=== PATIENT | male | born 1950 | race Caucasian/White ===

== ENCOUNTER 2020-03-17 11:55 | Emergency (ER) | payer MEDICARE, SELFPAY ==
[2020-03-17 11:59] VITALS: BP 111/73; PULSE 77; RESP 18; TEMP 36.4; O2SAT 98; BMI 27.8
--- NOTE | 2020-03-17 12:48 | ED.BACK ---
HPI - Back Pain/Injury General Chief Complaint: Back Pain/Injury Stated Complaint: back pain Time Seen by Provider: 03/17/20 12:41 Source: patient and senior engineering technician Mode of arrival: ambulatory Limitations: no limitations and language barrier History of Present Illness HPI Narrative: 69-year-old male here with acute on chronic low back pain. No injury or fall. No radiation of pain. No numbness or tingling. No saddle anesthesia. No bowel or bladder incontinence. Ambulatory with cane at baseline MD elicited complaint: back pain Pertinent past history: prior back pain Onset (ago): day(s) Timing: intermittent Severity: moderate Similar Symptoms Previously: Yes Quality: sharp Location: lumbar spine Radiation: none Exacerbating factors: none Relieving factors: none Associated symptoms: denies other symptoms Related Data Previous Rx's Medication Instructions Recorded cyclobenzaprine 10 mg PO TID PRN #10 tab 03/17/20 lidocaine [Lidoderm] 1 patch TOPICAL DAILY #15 ea 03/17/20 naproxen 500 mg PO BID PRN #20 tab 03/17/20 Allergies Allergy/AdvReac Type Severity Reaction Status Date / Time latex [Latex] Allergy Unknown UNKNOWN Verified 03/17/20 11:59 oxycodone AdvReac Unknown ? Verified 03/17/20 11:59 pancreatitis Latex Allergy Unknown Unknown Uncoded 03/17/20 11:59 Review of Systems Review of Systems: Yes all other systems are reviewed and are negative Constitutional: Constitutional: Reports no additional constitutional complaints, Denies body ache(s), Denies chills, Denies fever(s), Denies headache(s) and Denies weakness Eyes: Eyes: Reports no additional eye complaints and Denies change in vision ENT: Reports system reviewed and no additional complaints, except as documented, Denies dizziness, Denies headache(s), Denies nasal congestion, Denies nasal discharge and Denies neck pain Cardiovascular: Cardiovascular: Reports no additional cardiovascular complaints, Denies chest pain, Denies leg edema and Denies dyspnea Respiratory: Respiratory: Reports no additional respiratory complaints, Denies cough and Denies dyspnea Gastrointestinal: Gastrointestinal: Reports no additional gastrointestinal complaints, Denies abdominal pain, Denies diarrhea, Denies nausea and Denies vomiting Genitourinary: Genitourinary: Denies urinary incontinence Musculoskeletal: Musculoskeletal: Reports no additional musculoskeletal complaints, Reports back pain, Denies arthralgias, Denies joint swelling, Denies neck pain, Denies numbness and Denies tingling Integumentary/Breasts: Skin/Breast: Reports system reviewed and no additional complaints, except as docu and Denies rash Neurologic: Reports system reviewed and no additional complaints, except as documented, Denies Abnormal speech present, Denies dizziness, Denies headache(s), Denies numbness, Denies tingling and Denies weakness PMFSH Past Medical History Attestation statement: The following information was validated with the patient. Source: old records reviewed and nursing notes reviewed Medical History Back pain Difficulty sleeping Social History Social History Advance Directives: No Advance Directives Information Provided: Yes Physical Exam Vital Signs: Vital Signs: Last Vital Signs Temp 97.6 F 03/17/20 11:59 Pulse 77 03/17/20 11:59 Resp 18 03/17/20 11:59 BP 111/73 03/17/20 11:59 Pulse Ox 98 03/17/20 11:59 Body Mass Index 27.8 Const: General: cooperative, healthy appearing, comfortable and no acute distress Orientation/consciousness: patient oriented x3 Limitations: no limitations HENMT: Head: Yes normal to inspection Ears: hearing grossly normal bilaterally General nose exam: Normal external nose present Face and sinus: Yes normal facial exam Mouth: Normal oral and palatal mucosa present Throat: Yes posterior oropharynx normal Eyes: General: appearance normal, both eyes and all related structures Pupils: Equal, round and reactive pupils present Neck: Neck: Yes normal visual inspection Chest: Chest palpation & inspection: normal inspection of the chest Resp: Effort & Inspection: normal respiratory effort Auscultation: clear to auscultation bilaterally Cardio: Rate: regular rate Rhythm: regular rhythm Peripheral pulses: Peripheral pulses 2+ throughout GI: Inspection: Yes normal to inspection Palpation (GI): Soft to palpation and nontender Auscultation: normal bowel sounds Back/Spine/Pelvis: Other: Moderate lumbar midline tenderness. No step-offs or deformities. Pain with straight leg raise bilaterally. 5/5 strength Thoracic/Lumbar Spine: thoracic and lumbar spine normal to inspection Skin: General skin exam: no rashes or lesions noted Neuro: General: patient oriented x3, no focal motor deficits and normal sensation to monofilament Cranial nerves: Yes Equal, round and reactive pupils present Cognition (Neuro): normal cognition Speech: No Abnormal speech present Gait exam (Neuro): Normal gait present Motor exam (neuro): 5/5 motor strength present throughout Sensory Exam: Normal double simultaneous stimulation for sensation Deep tendon reflexes (DTR's): Right patellar reflex intensity grade: 2+ and Left patellar reflex intensity grade: 2+ Extrem: General: Yes normal to inspection Course Course Course Narrative: Patient has midline tenderness. Will check imaging. Provide analgesia and reassess. 1340-imaging shows some degenerative changes with no acute fracture. Patient is improved after receiving Toradol here. No neurological deficits or red flag symptoms. Likely lumbar strain. Reviewed worrisome signs and symptoms and when to return to the emergency department. Comfortable with discharge home. MDM - Back Pain/Injury Medical Records Attestation: I reviewed the patient's medical records. Lab Data Attestation: I reviewed the patient's lab results. Imaging Data lumbar xray: Attestation: I personally reviewed and interpreted this imaging study as follows: Radiologist's impression: EXAMINATION: XR LUMBOSACRAL SPINE CLINICAL INFORMATION: Low back pain. COMPARISON: None TECHNIQUE: Three views of the lumbosacral spine. FINDINGS: Normal lumbar lordosis. The vertebral heights and alignment is normal. There is loss of T12, L1 and L1-L2 disc heights with moderate ventral spondylosis. The large bridging osteophytes as well and mid lumbar spine. No acute fracture or lytic process seen. The paravertebral soft tissues are normal. XR/XR lumbar spine 2-3V IMPRESSION: Degenerative disc changes at L2-L3 and L1-L2 disc levels with moderate ventral spondylosis. No visible acute fracture, dislocation or subluxation seen. Discharge Plan Discharge Clinical Impression: Strain of lumbar region Qualifiers: Encounter type: initial encounter Qualified Code(s): S39.012A - Strain of muscle, fascia and tendon of lower back, initial encounter Patient Disposition: Home, Self-Care Instructions: Low Back Strain (ED) Additional Instructions: Heat or ice Gentle stretching Follow-up with your primary care doctor Prescriptions: New naproxen 500 mg tablet 500 mg PO BID PRN (Reason: pain) Qty: 20 RF: 0 cyclobenzaprine 10 mg tablet 10 mg PO TID PRN (Reason: muscle spasm) Qty: 10 RF: 0 lidocaine [Lidoderm] 5 % adhesive patch,medicated 1 patch topical DAILY Qty: 15 RF: 0 Referrals: Sam Martin MD [Primary Care Provider] - 2 days Interventions: ED Discharge Assessment Last Done: 03/17/20 13:59 Discharge Date/Time: 03/17/20 13:59 Print Language: [place]
--- NOTE | 2020-03-17 12:56 | XR_ITS ---
EXAMINATION: XR LUMBOSACRAL SPINE CLINICAL INFORMATION: Low back pain. COMPARISON: None TECHNIQUE: Three views of the lumbosacral spine. FINDINGS: Normal lumbar lordosis. The vertebral heights and alignment is normal. There is loss of T12, L1 and L1-L2 disc heights with moderate ventral spondylosis. The large bridging osteophytes as well and mid lumbar spine. No acute fracture or lytic process seen. The paravertebral soft tissues are normal. XR/XR lumbar spine 2-3V IMPRESSION: Degenerative disc changes at L2-L3 and L1-L2 disc levels with moderate ventral spondylosis. No visible acute fracture, dislocation or subluxation seen.
[2020-03-17] MEDS: Ketorolac Tromethamine 60 MG/2 ML VIAL IM (13:04)
== END 2020-03-17 13:59 | disposition home or self-care (01) ==
PROVIDERS: Emergency Provider Emergency Medicine; PCP Internal Medicine
DX: S39.012A Strain of muscle, fascia and tendon of lower back, initial encounter (principal); X58.XXXA Exposure to other specified factors, initial encounter; Y93.9 Activity, unspecified; Y92.9 Unspecified place or not applicable; Y99.9 Unspecified external cause status
CPT/HCPCS: 72100; 96372; 99283; 99284; J1885

== ENCOUNTER 2020-05-09 11:54 | Emergency (ER) | payer MEDICARE, SELFPAY ==
[2020-05-09 12:09] VITALS: BP 172/96; PULSE 90; RESP 18; TEMP 37; O2SAT 97; BMI 29.2
--- NOTE | 2020-05-09 13:39 | ED.BACK ---
HPI - Back Pain/Injury General Chief Complaint: Back Pain/Injury Stated Complaint: BACK PAIN Time Seen by Provider: 05/09/20 13:23 History of Present Illness HPI Narrative: PATIENT WITH CHRONIC BACK PAIN FOR YEARS COMPLAINS OF A FLARE UP SIMILAR TO MANY PRIOR EPISODES WERE HIS LOWER BACK IS HURTING, THERE IS NO RADIATION OF THE PAIN NO NUMBNESS NO WEAKNESS NO DIFFICULTY WALKING NO TROUBLE WITH URINATION NO CHANGES TO BOWEL OR BLADDER NO INCONTINENCE Related Data Previous Rx's Medication Instructions Recorded cyclobenzaprine 10 mg PO TID PRN #10 tab 03/17/20 lidocaine [Lidoderm] 1 patch TOPICAL DAILY #15 ea 03/17/20 naproxen 500 mg PO BID PRN #20 tab 03/17/20 cyclobenzaprine 5 mg PO TID PRN #14 tab 05/09/20 lidocaine [Lidoderm] 1 patch TOPICAL DAILY #15 ea 05/09/20 naproxen [Naprosyn] 500 mg PO BID PRN #14 tab 05/09/20 Allergies Allergy/AdvReac Type Severity Reaction Status Date / Time latex [Latex] Allergy Intermediate UNKNOWN Verified 05/09/20 12:09 oxycodone AdvReac Intermediate ? Verified 05/09/20 12:09 pancreatitis Latex Allergy Intermediate Unknown Uncoded 05/09/20 12:09 Review of Systems Review of Systems: Positive for low back pain Negatives are dizziness weakness, no fever no chills no neck pain no numbness no weakness no paresthesias no tingling no radiation of pain no incontinence no dysuria no changes to bowel or bladder no chest pain or shortness of breath no abdominal pain no rash PMFSH Past Medical History PMFSH Narrative: Patient has long history of chronic back pain and says he has had this ?for ever, and gets flare ups of more severe pain every few months and this is the same as his prior flare ups with back pain worse with movement, he also has history of hypertension for which she takes medication Source: nursing notes reviewed Medical History Back pain Difficulty sleeping Social History Social History Advance Directives: No Advance Directives Information Provided: No Physical Exam Vital Signs: Vital Signs: Last Vital Signs Temp 98.6 F 05/09/20 12:09 Pulse 90 05/09/20 12:09 Resp 18 05/09/20 12:09 BP 172/96 H 05/09/20 12:09 Pulse Ox 97 05/09/20 12:09 Body Mass Index 29.2 General appearance is no acute distress, but uncomfortable with movement, A&O x3, Head is normocephalic atraumatic Neck is supple and nontender The chest is clear to auscultation bilaterally, no chest wall tenderness The heart no murmur auscultated The abdomen is soft and nontender The back had bilateral paraspinal lower lumbar tenderness, the skin was normal without rash or redness, no swelling, no CVA tenderness, no focal bony tenderness, pain easily reproduced with movement Extremities is full range of motion x4 The skin no rash Neuro there is no focal deficit, motor is 5/5 x4, no sensory deficit, gait is normal Course Course Course Narrative: Patient had Toradol shot with good relief, and is discharged home with medications he has taken before, lidocaine patch Naprosyn and Flexeril and will follow with his doctor Discharge Plan Discharge Clinical Impression: Back pain Qualifiers: Back pain location: low back pain Chronicity: chronic Back pain laterality: bilateral Sciatica presence: without sciatica Qualified Code(s): M54.5 - Low back pain Patient Disposition: Home, Self-Care Additional Instructions: Follow with primary doctor Return to ER any time any worse condition or any concerns It is fine to take 2 extra-strength Tylenol 3 times a day in addition to medications prescribed Prescriptions: New cyclobenzaprine 5 mg tablet 5 mg PO TID PRN (Reason: muscle spasm) Qty: 14 RF: 0 lidocaine [Lidoderm] 5 % adhesive patch,medicated 1 patch topical DAILY Qty: 15 RF: 0 naproxen [Naprosyn] 500 mg tablet 500 mg PO BID PRN (Reason: pain) Qty: 14 RF: 0 No Action naproxen 500 mg tablet 500 mg PO BID PRN (Reason: pain) Qty: 20 RF: 0 cyclobenzaprine 10 mg tablet 10 mg PO TID PRN (Reason: muscle spasm) Qty: 10 RF: 0 lidocaine [Lidoderm] 5 % adhesive patch,medicated 1 patch topical DAILY Qty: 15 RF: 0 Interventions: ED Discharge Assessment Last Done: 05/09/20 14:46 Discharge Date/Time: 05/09/20 14:47
[2020-05-09] MEDS: Ketorolac Tromethamine 30 MG/ML VIAL IM (14:22)
== END 2020-05-09 14:47 | disposition home or self-care (01) ==
PROVIDERS: Emergency Provider Emergency Medicine Emergency Medical Services; PCP Internal Medicine
DX: M54.5 Low back pain (principal)
CPT/HCPCS: 96372; 99283; 99284; J1885

== ENCOUNTER 2022-01-08 21:13 | Emergency (ER) | payer MEDICARE, SELFPAY ==
--- NOTE | ~2022-01-08 | XR_ITS ---
EXAMINATION: XR HAND, LEFT CLINICAL INFORMATION: Swelling. COMPARISON: None TECHNIQUE: Three views of the left hand. FINDINGS: Marked degenerative change of the first metacarpal carpal joint. Joint narrowing and marginal bone spurs. Mild joint narrowing between navicular bone and multangular bones as well. Faint chondrocalcinosis of the TFCC. No bone erosions. Vascular calcifications at the radial side of the wrist. No fracture or dislocation. XR/XR hand LT 2V IMPRESSION: 1. No acute abnormality. 2. 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
[2022-01-08 21:16] VITALS: BP 133/81; PULSE 99; RESP 18; TEMP 37.1; O2SAT 97; BMI 27.4
[2022-01-08 21:36] LABS: MANUAL DIFF FLAG NO
[2022-01-08 21:40] LABS: Basophils Absolute Auto 0.1 X10*3/uL (0.0-0.2); Basophils Percent Auto 0.5 % (0-2); Eosinophils Absolute Auto 0.2 X10*3/uL (0.0-0.4); Eosinophils Percent Auto 1.3 % (0-4); Hematocrit 43.9 % (42.0-52.0); Hemoglobin 15.3 g/dl (14.0-18.0); Imm Gran Abs Auto 0.03 X10*3/uL (0.00-0.03); Imm Gran Pct Auto 0.2 % (0.0-0.4); Lymphocytes Absolute Auto 2.8 X10*3/uL (1.2-4.9); Mean Corpuscular HGB Conc 34.9 g/dl (31.0-36.0); Mean Corpuscular Hemoglobin 30.5 pg (27.0-33.0); Mean Corpuscular Volume 87.6 fL (80.0-98.0); Mean Platelet Volume 10.2 fL (9.4-12.4); Monocytes Absolute Auto 1.3 X10*3/uL (0.1-1.2); Monocytes Percent Auto 9.9 % (2-11); Neutrophils Absolute Auto 8.9 x10*3/uL (2.0-8.3); Neutrophils Percent Auto 67.1 % (45-73); Platelet Count 251 X10*3/uL (160-400); Red Blood Count 5.01 X10*6/uL (4.60-5.80); Red Cell Distribution Width 12.1 % (11.0-16.0); White Blood Count 13.2 X10*3/uL (4.8-10.8)
[2022-01-08 21:51] LABS: Alanine Aminotransferase 12 U/L (0-40); Albumin Level 4.4 g/dL (3.5-5.0); Alkaline Phosphatase 70 U/L (39-117); Anion Gap 17 (12-20); Aspartate Amino Transferase 15 U/L (5-37); Bilirubin Total 0.8 mg/dL (0.0-1.0); Blood Urea Nitrogen 13 mg/dL (9-16); Calcium 9.4 mg/dL (8.4-10.2); Carbon Dioxide 22 mmol/L (22-29); Chloride 106 mmol/L (96-108); Creatinine Clr Calc Pharmacy 45.4; Estimated Glomerular Filt Rate 52; Glucose Random 121 mg/dL (60-115); Potassium 3.8 mmol/L (3.3-5.1); Sodium 141 mmol/L (135-145); Total Protein 7.4 g/dL (6.5-8.0)
--- NOTE | 2022-01-08 21:56 | ED_ITS ---
HPI - Extremity Problem General Chief complaint: Extremity Injury, Upper Stated complaint: swelling in left hand Time Seen by Provider: 01/08/22 21:51 Source: patient and cloth cutter Mode of arrival: EMS Limitations: no limitations History of Present Illness MD Complaint: extremity pain and extremity swelling Onset (ago): day(s) (yesterday ) Pain Consistency: constant Location: left and upper extremity (wrist/hand) Quality: aching and constant Radiation: proximal Relieving factors: immobilization Exacerbating factors: range of motion and palpation Associated symptoms: denies other symptoms Context: other (has arthritis, drinks alcohol) Related Data Previous Rx's Medication Instructions Recorded cyclobenzaprine 10 mg tablet 10 mg PO TID PRN muscle spasm #10 03/17/20 tabs lidocaine 5 % topical patch 1 patch topical DAILY #15 ea 03/17/20 (Lidoderm) naproxen 500 mg tablet 500 mg PO BID PRN pain #20 tabs 03/17/20 cyclobenzaprine 5 mg tablet 5 mg PO TID PRN muscle spasm #14 05/09/20 tabs lidocaine 5 % topical patch 1 patch topical DAILY pain in back 05/09/20 (Lidoderm) #15 ea naproxen 500 mg tablet (Naprosyn) 500 mg PO BID PRN pain #14 tabs 05/09/20 cyclobenzaprine 10 mg tablet 10 mg PO TID PRN muscle spasm #14 01/08/22 tabs famotidine 20 mg tablet (Pepcid) 20 mg PO DAILY 10 days #10 tabs 01/08/22 ibuprofen 400 mg tablet 400 mg PO Q8H PRN pain #20 tabs 01/08/22 prednisone 20 mg tablet 40 mg PO DAILY 4 days #8 tabs 01/08/22 Allergies Allergy/AdvReac Type Severity Reaction Status Date / Time latex [Latex] Allergy Intermediate UNKNOWN Verified 05/09/20 12:09 oxycodone AdvReac Intermediate ? Verified 05/09/20 12:09 pancreatitis Latex Allergy Intermediate Unknown Uncoded 05/09/20 12:09 Review of Systems Review of Systems: Constitutional : No Fever, No Chills ENT/Mouth : No Ear Pain, No Hoarseness, No sore throat Eyes: No Eye Pain, No Swelling, No Redness, No Foreign Body Cardiovascular : No Chest Pain, No SOB Respiratory : No Cough, No Dyspnea Gastrointestinal : No Nausea, No Vomiting, No Diarrhea, No abdominal Pain Genitourinary : No Dysuria, No Hematuria Musculoskeletal : positive joint pain, No Myalgias, pos Joint Swelling Skin : No Skin lacerations, No rash Neuro : No Weakness, No Numbness, No Loss of Consciousness, No Dizziness, No Headache Psych : No Anxiety/Panic, No Depression Heme/Lymph: no easy bruising, no Lymphadenopathy Endocrine : No Polyuria, No Polydipsia All other systems reviewed and are negative [facility], [facility] Past Medical History Attestation statement: The following information was validated with the patient. Medical History Arthritis Back pain Difficulty sleeping Social History Social History (Updated 01/08/22 @ 22:24 by Sulma Stephens DO) Alcohol intake: current Patient Tobacco Use Status: Current someday Tobacco user Physical Exam Vital Signs: Vital Signs: Last Vital Signs Temp 98.7 F 01/08/22 21:16 Pulse 99 01/08/22 21:16 Resp 18 01/08/22 21:16 BP 133/81 01/08/22 21:16 Pulse Ox 97 01/08/22 21:16 O2 Del Method 01/08/22 21:16 BMI result Body Mass Index 27.4 Appearance: Alert. Oriented X3. No acute distress. Eyes: Pupils equal, round and reactive to light. ENT: Pharynx normal. Neck: Normal inspection. Neck supple. CVS: Normal heart rate and rhythm. Pulses normal. Respiratory: No respiratory distress. Breath sounds normal. Abdomen: Soft and non-tender. Skin: Skin warm and dry. Normal skin color. Normal skin turgor. Extremities: No lower extremity edema. L hand dorsum and L wrist mild swelling distal NV intact no erythema very minimal warmth 2+ radial pulse, no proximal swelling Neuro: Oriented X 3. No motor deficit. No sensory deficit. MDM - Extremity (Nontraumatic) MDM Narrative Medical decision making narrative: 71 yo male with hx of ETOH, HTN, arthritis here with atraumatic L hand pain into wrist it is swollen and mildly warm no erythema or signs of infection. He is NV intact - it appears consistent with inflammation or gout. Xrays and labs ordered. PO steroids and anti - inflammatories. Dispo per results and findings. Lab Data Result diagrams: 01/08/22 21:27 01/08/22 21:27 Labs: Lab Results 01/08/22 01/08/22 01/08/22 Range/Units 21:27 21:27 21:27 WBC 13.2 H (4.8-10.8) X10*3/uL RBC 5.01 (4.60-5.80) X10*6/uL Hgb 15.3 (14.0-18.0) g/dl Hct 43.9 (42.0-52.0) % MCV 87.6 (80.0-98.0) fL MCH 30.5 (27.0-33.0) pg MCHC 34.9 (31.0-36.0) g/dl RDW 12.1 (11.0-16.0) % Plt Count 251 (160-400) X10*3/uL MPV 10.2 (9.4-12.4) fL Immature Gran % (Auto) 0.2 (0.0-0.4) % Neut % (Auto) 67.1 (45-73) % Lymph % (Auto) 21.0 (20-40) % [place] % (Auto) 9.9 (2-11) % Eos % (Auto) 1.3 (0-4) % Baso % (Auto) 0.5 (0-2) % Lymph # (Auto) 2.8 (1.2-4.9) X10*3/uL [place] # (Auto) 1.3 H (0.1-1.2) X10*3/uL Eos # (Auto) 0.2 (0.0-0.4) X10*3/uL Baso # (Auto) 0.1 (0.0-0.2) X10*3/uL Abs Immat Gran (auto) 0.03 (0.00-0.03) X10*3/uL Absolute Neuts (auto) 8.9 H (2.0-8.3) x10*3/uL Absolute Nucleated RBC 0.000 (0.0-0.012) X10*3/uL Nucleated RBC % (auto) 0.0 (0.0-0.2) /100WBC ESR 18 H (0-15) MM/HR Sodium 141 (135-145) mmol/L Potassium 3.8 (3.3-5.1) mmol/L Chloride 106 (96-108) mmol/L Carbon Dioxide 22 (22-29) mmol/L Anion Gap 17 (12-20) BUN 13 (9-16) mg/dL Creatinine 1.36 (0.5-1.4) mg/dL Estim Creat Clear Calc 45.4 Estimated GFR 52 Random Glucose 121 H (60-115) mg/dL Uric Acid 7.2 H (3.4-7.0) mg/dL Calcium 9.4 (8.4-10.2) mg/dL Total Bilirubin 0.8 (0.0-1.0) mg/dL AST 15 (5-37) U/L ALT 12 (0-40) U/L Alkaline Phosphatase 70 (39-117) U/L Total Protein 7.4 (6.5-8.0) g/dL Albumin 4.4 (3.5-5.0) g/dL Discharge Plan Discharge Clinical Impression: Gout Patient Disposition: Home, Self-Care Instructions: Low Purine Diet (ED), Gout (ED) Additional Instructions: regresar al servicio de urgencias por cualquier empeoramiento de los s?ntomas o inquietudes arlene todos los medicamentos con alimentos consulte a singh m?dico si no mejora en 3 d?as Prescriptions: New cyclobenzaprine 10 mg tablet 10 mg PO TID PRN (Reason: muscle spasm) Qty: 14 0RF famotidine [Pepcid] 20 mg tablet 20 mg PO DAILY 10 Days Qty: 10 0RF ibuprofen 400 mg tablet 400 mg PO Q8H PRN (Reason: pain) Qty: 20 0RF prednisone 20 mg tablet 40 mg PO DAILY 4 Days Qty: 8 0RF No Action cyclobenzaprine 5 mg tablet 5 mg PO TID PRN (Reason: muscle spasm) Qty: 14 0RF lidocaine [Lidoderm] 5 % adhesive patch,medicated 1 patch topical DAILY Qty: 15 0RF Rx Instructions: leave on most painful area for up to 12 hrs naproxen [Naprosyn] 500 mg tablet 500 mg PO BID PRN (Reason: pain) Qty: 14 0RF naproxen 500 mg tablet 500 mg PO BID PRN (Reason: pain) Qty: 20 0RF cyclobenzaprine 10 mg tablet 10 mg PO TID PRN (Reason: muscle spasm) Qty: 10 0RF lidocaine [Lidoderm] 5 % adhesive patch,medicated 1 patch topical DAILY Qty: 15 0RF Rx Instructions: leave on most painful area for up to 12 hrs Print Language: Sami
[2022-01-08 22:17] LABS: Erythrocyte Sedimentation Rate 18 MM/HR (0-15)
[2022-01-08 22:30] LABS: Uric Acid 7.2 mg/dL (3.4-7.0)
[2022-01-08] MEDS: Famotidine 20 MG TABLET PO (22:36)
[2022-01-08] MEDS: predniSONE 20 MG TABLET 40 MG PO (22:36)
[2022-01-08] MEDS: Ibuprofen 400 MG TABLET PO (22:37)
--- NOTE | 2022-01-08 23:48 | PC.NURSE ---
Patient required 15minutes of discharge via video intrepreter. Patient was displeased with MD diagnosis and treatment. PT wanted medications provided instead of going to the pharmacy, he was displeased we did not fix the swelling in his hand before he left. Patient reassured the MD evaluated him and the diagnosis was gout and educated on medication dispensing laws that meds had to go through the pharmacy. He left without signing paperwork.
== END 2022-01-08 23:51 | disposition home or self-care (01) ==
PROVIDERS: Emergency Provider Emergency Medicine; PCP Internal Medicine
DX: M10.9 Gout, unspecified (principal); R60.0 Localized edema; M79.642 Pain in left hand; Z79.899 Other long term (current) drug therapy
CPT/HCPCS: 36415; 73120; 80053; 84550; 85025; 85652; 99283

== ENCOUNTER 2022-12-20 21:08 | Emergency (ER) | payer OTHER, SELFPAY ==
[2022-12-20 21:54] VITALS: BP 161/96; BP 162/96; PULSE 64; PULSE 73; RESP 18; TEMP 36.7; O2SAT 95; O2SAT 99; BMI 27.8
[2022-12-20 22:22] VITALS: BP 174/99; PULSE 67; RESP 19; O2SAT 95
--- NOTE | 2022-12-20 23:27 | ED.GENADULT ---
HPI - General Adult General Chief complaint: General Medical Stated complaint: R arm pain. unk. duration Time Seen by Provider: 12/20/22 22:54 Source: patient Mode of arrival: EMS Limitations: no limitations History of Present Illness HPI narrative: Patient seemed to years with history of ETOH use, hypertension, arthritis and gout comes here for pain in right shoulder for last 6 days patient does have history of pain off and on in the past got worse no history of any injury pain get worse on lifting his right shoulder no paresthesia patient not taking his blood pressure medication on arrival blood pressure was 161/96 Related Data Previous Rx's Medication Instructions Recorded cyclobenzaprine 10 mg tablet 10 mg PO TID PRN muscle spasm #10 03/17/20 tabs lidocaine 5 % topical patch 1 patch topical DAILY #15 ea 03/17/20 (Lidoderm) naproxen 500 mg tablet 500 mg PO BID PRN pain #20 tabs 03/17/20 cyclobenzaprine 5 mg tablet 5 mg PO TID PRN muscle spasm #14 05/09/20 tabs lidocaine 5 % topical patch 1 patch topical DAILY pain in back 05/09/20 (Lidoderm) #15 ea naproxen 500 mg tablet (Naprosyn) 500 mg PO BID PRN pain #14 tabs 05/09/20 cyclobenzaprine 10 mg tablet 10 mg PO TID PRN muscle spasm #14 01/08/22 tabs famotidine 20 mg tablet (Pepcid) 20 mg PO DAILY 10 days #10 tabs 01/08/22 ibuprofen 400 mg tablet 400 mg PO Q8H PRN pain #20 tabs 01/08/22 prednisone 20 mg tablet 40 mg (2 x 20 mg) PO DAILY 4 days 01/08/22 #8 tabs tramadol 50 mg tablet 50 mg PO Q6H PRN pain #20 tabs 12/21/22 Allergies Allergy/AdvReac Type Severity Reaction Status Date / Time latex [Latex] Allergy Intermediate UNKNOWN Verified 05/09/20 12:09 oxycodone AdvReac Intermediate ? Verified 05/09/20 12:09 pancreatitis Latex Allergy Intermediate Unknown Uncoded 05/09/20 12:09 Review of Systems Review of Systems: Yes all other systems are reviewed and are negative PMFSH Past Medical History Medical History Arthritis Difficulty sleeping Back pain Social History Social History Alcohol intake: current Patient Tobacco Use Status: Current someday Tobacco user Smoked in Last 30 Days: No Use of substances other than those prescribed or required for medical reasons: No Advance Directives: No Advance Directives Information Provided: Yes Physical Exam ED Vital Signs: Vital Signs - 24 hr 12/20/22 21:54 12/20/22 22:22 Temperature 98.1 F Pulse Rate 64 67 Respiratory Rate 18 19 Blood Pressure 161/96 H 174/99 H Pulse Oximetry 95 95 Oxygen Delivery Method Room Air Room Air BMI result Body Mass Index 27.8 Appearance: Alert. Oriented X3. No acute distress. Neck: Normal inspection. Neck supple. CVS: Normal heart rate and rhythm. Pulses normal. Respiratory: No respiratory distress. Equal air entry bilateral, no wheezing/rales/rhonchi Abdomen: Soft and nontender. Bowel sounds are present, no mass palpable, no CVA tenderness Skin: Skin warm and dry. Normal skin color. Normal skin turgor. Extremities: No lower extremity edema. No calf tenderness tenderness as right shoulder rotator cuffpain limited with supination rotation neurovascular intact Neuro: Oriented X 3. No motor deficit. Medical Decision Making Medical Decision Making MDM Narrative: Patient with rotator tendinitis etiology not clear, Differential Diagnosis Differential Diagnoses: The differential diagnosis associated with the presentation includes Rotator cuff tendinitis/arthritis Consult Healthcare Provider Management of the patient was discussed with: Hospitalist Discharge Plan Discharge Clinical Impression: Right rotator cuff tendinitis Patient Disposition: Home, Self-Care Instructions: Rotator Cuff Tendinitis (ED) Additional Instructions: Take pain medication as prescribed for pain in your shoulder secondary to tendinitis Follow-up with orthopedic/ PCP Prescriptions: New tramadol 50 mg tablet 50 mg PO Q6H PRN (Reason: pain) Qty: 20 0RF No Action cyclobenzaprine 5 mg tablet 5 mg PO TID PRN (Reason: muscle spasm) Qty: 14 0RF lidocaine [Lidoderm] 5 % adhesive patch,medicated 1 patch topical DAILY Qty: 15 0RF Rx Instructions: leave on most painful area for up to 12 hrs naproxen [Naprosyn] 500 mg tablet 500 mg PO BID PRN (Reason: pain) Qty: 14 0RF naproxen 500 mg tablet 500 mg PO BID PRN (Reason: pain) Qty: 20 0RF cyclobenzaprine 10 mg tablet 10 mg PO TID PRN (Reason: muscle spasm) Qty: 10 0RF lidocaine [Lidoderm] 5 % adhesive patch,medicated 1 patch topical DAILY Qty: 15 0RF Rx Instructions: leave on most painful area for up to 12 hrs cyclobenzaprine 10 mg tablet 10 mg PO TID PRN (Reason: muscle spasm) Qty: 14 0RF famotidine [Pepcid] 20 mg tablet 20 mg PO DAILY 10 Days Qty: 10 0RF ibuprofen 400 mg tablet 400 mg PO Q8H PRN (Reason: pain) Qty: 20 0RF prednisone 20 mg tablet 40 mg PO DAILY 4 Days Qty: 8 0RF Print Language: Macanese
[2022-12-21] VITALS: BP 165/93
[2022-12-21 02:00] VITALS: BP 170/93
== END 2022-12-21 02:47 | disposition home or self-care (01) ==
PROVIDERS: Emergency Provider Internal Medicine
DX: M75.101 Unspecified rotator cuff tear or rupture of right shoulder, not specified as traumatic (principal); F17.200 Nicotine dependence, unspecified, uncomplicated; Z71.6 Tobacco abuse counseling; Z79.899 Other long term (current) drug therapy
CPT/HCPCS: 73030; 99283; 99284

== ENCOUNTER 2023-01-12 09:42 | Outpatient (AMB) | payer OTHER, SELFPAY ==
[2023-01-12 09:44] VITALS: BP 145/86; PULSE 89; BMI 26.8
--- NOTE | 2023-01-12 09:44 | MHC.OFFVIS ---
Intake Vital Signs 01/12/23 09:44 Height 5 ft 4 in Weight 156 lb BMI 26.8 BP 145/86 H Blood Pressure Location Lt brachial Position Sitting Pulse 89 Intake Visit Reasons: recall colonoscopy screening Intake Note: This patient presents for a recall colonoscopy screening. Patient c/; reports no rectal bleeding, reports no change in bowel habits. 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 pancreatitis Latex Allergy (Intermediate, Uncoded 01/12/23 09:51) Unknown Medication List - Last Reconciled 01/12/23 by Anuel Domínguez MD cyclobenzaprine 5 mg PO TID PRN cyclobenzaprine 10 mg PO TID PRN cyclobenzaprine 10 mg PO TID PRN famotidine (Pepcid) 20 mg PO DAILY 10 days ibuprofen 400 mg PO Q8H PRN lidocaine 5% (Lidoderm) 1 patch topical DAILY lidocaine 5% (Lidoderm) 1 patch topical DAILY naproxen 500 mg PO BID PRN naproxen (Naprosyn) 500 mg PO BID PRN prednisone 40 mg (2 x 20 mg) PO DAILY 4 days tramadol 50 mg PO Q6H PRN HPI recall colonoscopy screening HPI Details 72-year-old male here for a follow-up colonoscopy. He had a colonoscopy in 2017. He was noted to have sigmoid diverticulosis at that time. The suboptimal bowel prep so I had recommended repeating the colonoscopy within 5 years He denies any GI complaints at this time. He has good bowel movements and denies blood per rectum. He denies changes in bowel habits. [facility] Medical History (Updated 01/12/23 @ 10:10 by Anuel Domínguez MD) Colon cancer screening Arthritis Difficulty sleeping Back pain Surgical History No pertinent past surgical history Family History Father Cancer Brother Cancer Social History Alcohol intake: current Patient Tobacco Use Status: Current someday Tobacco user Review of Systems Const Denies chills and Denies fever(s) Card Denies chest pain, Denies dyspnea and Denies dyspnea on exertion Resp Denies cough, Denies dyspnea and Denies dyspnea on exertion GI Denies hematochezia and Denies change in bowel habits Denies hematuria and Denies difficulty urinating Musc Denies back pain, Reports arthralgias and Denies limited range of motion Neuro Denies focal weakness and Denies convulsions Psych Denies depression and Denies mood swings Physical Exam Vital Signs: Last Vital Signs Pulse 89 01/12/23 09:44 BP 145/86 H 01/12/23 09:44 BMI result Body Mass Index 26.8 Const General: comfortable and no acute distress Orientation/consciousness: patient oriented x3 Neck Neck: Yes no lymphadenopathy Resp Auscultation: clear to auscultation bilaterally Cardio Rhythm: regular rhythm GI Palpation (GI): Soft to palpation, nontender and no guarding Neuro General: patient oriented x3 Assessment & Plan Assessment & Plan (1) Colon cancer screening: Code(s): Z12.11 - Encounter for screening for malignant neoplasm of colon Plan: He had a screening colonoscopy in 2017. He had diverticulosis but he had suboptimal bowel prep at that time. I therefore recommended follow-up colonoscopy in 5 years. I reviewed with him the technique of this procedure. I discussed the risks including but not limited to bleeding, perforation, as well as the benefits and alternatives. He understands and wants to proceed. Coding Level of Care Code New Pt Level 3 (01491) Diagnoses Colon cancer screening Z12.11
== END 2023-01-12 10:04 | disposition home or self-care (01) ==
PROVIDERS: Visit Provider Surgery
DX: Z12.11 Encounter for screening for malignant neoplasm of colon (principal)
CPT/HCPCS: 99203

== ENCOUNTER → 2023-01-12 09:42 | Outpatient (BNVA) | payer OTHER, SELFPAY | PROVIDERS: Visit Provider Surgery | DX: Z12.11 Encounter for screening for malignant neoplasm of colon (principal) | CPT/HCPCS: 99202 ==

== ENCOUNTER 2023-01-17 08:07 | Outpatient (REF) | payer OTHER, SELFPAY ==
[2023-01-17 11:50] LABS: Anion Gap 14 (12-20); Blood Urea Nitrogen 16 mg/dL (9-16); Carbon Dioxide 24 mmol/L (22-29); Chloride 107 mmol/L (96-108); Estimated Glomerular Filt Rate > 60; Potassium 3.8 mmol/L (3.3-5.1); Sodium 141 mmol/L (135-145)
[2023-01-17 11:51] LABS: Calcium 9.6 mg/dL (8.4-10.2); Glucose Random 72 mg/dL (60-115)
== END 2023-01-17 08:08 | disposition home or self-care (01) ==
LOC: HO.HHCL 08:07
PROVIDERS: Visit Provider Internal Medicine
DX: I10 Essential (primary) hypertension (principal)
CPT/HCPCS: 36415; 80048

== ENCOUNTER 2023-06-23 06:45 | Day surgery (SDC) | payer OTHER, SELFPAY ==
[2023-06-20 10:11] VITALS: BMI 26.8
--- NOTE | 2023-06-21 12:01 | HO.ANESPROP2 ---
HPI - Anesthesia Eval Consult details Narrative: 72yo M for Colonoscopy with Possible Polypectomy PMFSH Active Problems Active Problems: All Active Problems Colon cancer screening (Acute) Past Medical History Medical History (Updated 01/12/23 @ 10:10 by Anuel Domínguez MD) Colon cancer screening Arthritis Difficulty sleeping Back pain Family History Family History Father Cancer Brother Cancer Surgical History Surgical History No pertinent past surgical history Social History Social History Alcohol intake: current Patient Tobacco Use Status: Current someday Tobacco user Meds Allergies Allergy/AdvReac Type Severity Reaction Status Date / Time latex [Latex] Allergy Intermediate UNKNOWN Verified 01/12/23 09:51 oxycodone AdvReac Intermediate ? Verified 01/12/23 09:51 pancreatitis Latex Allergy Intermediate Unknown Uncoded 01/12/23 09:51 Exam Height,Weight and Vital Signs: Height 5 ft 4 in Weight 70.76 kg Assessment and Plan Assessment Anesthesia Assessment: Chart Reviewed
[2023-06-23 07:14] VITALS: BMI 28.0
[2023-06-23 07:24] VITALS: BP 137/84; PULSE 76; RESP 16; TEMP 36.4; O2SAT 97
[2023-06-23] MEDS: Lactated Ringers 1,000 ML 100 ML IVCONT (07:30)
--- NOTE | 2023-06-23 08:08 | P.HPSUR_ITS ---
Pre-Procedural Eval Section A - 24 Hr Update-Section A only Date of Service: 06/23/23 Section B - Complete if H&P > 30 days Chief Complaint: screening Details of Present Illness: Had colonoscopy in 2017 but had suboptimal bowel prep so he was recommended to have a short interval follow-up colonoscopy Relevant Family History (Specify if Yes): No Relevant Social History: None Present Medications: see Short Stay Collaborative assessment Medical History: No relevant PMH Allergies: Allergies Allergy/AdvReac Type Severity Reaction Status Date / Time latex [Latex] Allergy Intermediate UNKNOWN Verified 06/23/23 07:14 oxycodone AdvReac Intermediate ? Verified 06/23/23 07:14 pancreatitis Review of Systems Sugical H&P ROS: Negative: Constitution, Cardiovascular, Respiratory, Neurological, Psychiatric, Hem-Onc, Allergic/Immunologic, Gastrointestinal, Ge nitourinary, Musculoskeletal, Integumentary, Endocrine and Eyes/Ears/Nose/Throat Exam Surgical H&P Exam: Normal: HEENT, Normal: Heart, Normal: Lungs, Normal: Extremities, Normal: Abdomen, Normal: Skin and Normal: Neurological Plan Diagnosis/Plan: Unchanged I have reviewed the history and physical and performed a pertinent physical examination on my patient. No changes have occurred unless specified. Time Spent With Patient Time: Total time managing care of this patient today ____ minutes.
--- NOTE | 2023-06-23 08:13 | HO.ANESPROP2 ---
[facility] Active Problems Active Problems: All Active Problems (Updated 06/23/23 @ 07:03 by Socorro Delgado) Colon cancer screening (Acute) Past Medical History Medical History (Updated 06/23/23 @ 07:03 by Socorro Delgado) Hypertension Colon cancer screening Arthritis Difficulty sleeping Back pain Family History Family History Father Cancer Brother Cancer Family history of problems with anesthesia: No Surgical History Surgical History (Updated 06/23/23 @ 07:03 by Socorro Delgado) H/O colonoscopy No pertinent past surgical history Social History Social History Alcohol intake: current Alcohol intake frequency: former alcohol drinker Patient Tobacco Use Status: Former Tobacco user Quit Date: 2006 Tobacco use type: Cigarette Years Smoked: 5 Smoked in Last 30 Days: No Use of substances other than those prescribed or required for medical reasons: No Are you DNR?: No Advance Directives: No Advance Directives Information Provided: Yes Meds Allergies Allergy/AdvReac Type Severity Reaction Status Date / Time latex [Latex] Allergy Intermediate UNKNOWN Verified 06/23/23 07:14 oxycodone AdvReac Intermediate ? Verified 06/23/23 07:14 pancreatitis Active Medications: Current Medications Lactated Ringer's (Lr) 1,000 mls @ 100 mls/hr IVCONT .Q10H GABRIELLA Last Admin: 06/23/23 07:30 Dose: 100 mls/hr Ondansetron HCl (Ondansetron Hcl 4 Mg/2 Ml Vial) 4 mg IVPUSH ONCE PRN PRN Reason: Nausea and Vomiting Stop: 06/23/23 13:54 Home Medications ?Medication ?Instructions ?Recorded ?Confirmed ?Last Taken ?Type amlodipine 5 mg tablet 5 mg PO QAM 06/23/23 06/23/23 Unknown History Exam Height,Weight and Vital Signs: Height 5 ft 4 in Weight 74.117 kg Last Vital Signs Temp 97.6 F 06/23/23 07:24 Pulse 76 06/23/23 07:24 Resp 16 06/23/23 07:24 BP 137/84 06/23/23 07:24 Pulse Ox 97 06/23/23 07:24 O2 Del Method Room Air 06/23/23 07:24 Airway Mallampati Class: III TM Dist: >3cm Denture: Upper Partial: Lower Heart: rrr Lungs: clear Assessment and Plan Final Anesthetic Review Family History of Problems with Anesthesia: No NPO: No ASA Class: II Final Preanesthetic Review: No Changes in Pt Med Stat, Meds/Allgs Chart Reviewed, Consent Obtained/Reviewed and Anes Risks/Benef Reviewed Patient Risk: Intermediate Procedure Risk: Low Anesthetic Plan Anesthetic Plan: MAC: Disposition: Standard PACU
--- NOTE | 2023-06-23 09:14 | W.PM.OPN ---
Operative Note Operative Note Date of Service: 06/23/23 Narrative: Preop diagnosis: Screening colonoscopy Postop diagnosis: 1. Small polyp about 3 mm at the proximal transverse colon 2. Heavy diverticulosis in the sigmoid Procedure: Colonoscopy with polypectomy using cold forceps Surgeon: Anuel Domínguez MD The patient is a 72-year-old male who had a colonoscopy in 2017 with optimal bowel prep. I had recommended a short interval follow-up colonoscopy. He understood the technique of the planned procedure as well as the risks, benefits, and alternatives The patient was brought to the operating room and placed in left lateral decubitus position under monitored anesthesia care. A surgical time-out was done. A full digital rectal exam was done and this did not reveal any significant anal lesions. The tip of the Olympus colonoscope was gently introduced through the anal orifice advanced with insufflation all the way to the cecum. The cecum was intubated. The cecum was identified by visualization of the ileocecal valve as well as the appendiceal orifice. The cecal mucosa was unremarkable. The scope was gradually withdrawn with careful examination of the entire colonic mucosa being done with scope withdrawal. There was note of a small polyp probably about 3 mm at the proximal transverse colon. This was removed with cold forceps. Removal was difficult in view of the location of the polyp being behind a fold. There was note of very heavy diverticulosis in the sigmoid colon, some of these were wide-mouthed. The patient had adequate bowel prep so it was unlikely that any other lesion may have been missed. The rectum was reached and there were no lesions seen. The anal canal was unremarkable. The scope was then withdrawn completely with desufflation. The patient tolerated procedure well. There were no immediate complications. In view of his age, this may be his last colonoscopy for screening..
[2023-06-23 09:16] VITALS: BP 123/80; PULSE 80; RESP 20; TEMP 36.3; O2SAT 94
[2023-06-23 09:31] VITALS: BP 124/90; PULSE 73; RESP 20; TEMP 36.1; O2SAT 98
[2023-06-23 09:36] VITALS: BP 141/95; PULSE 78; RESP 20; TEMP 36.1; O2SAT 98
== END 2023-06-23 10:15 | disposition home or self-care (01) ==
PROVIDERS: PCP Internal Medicine; Visit Provider Surgery
PROC: 0DBE8ZZ Excision of Large Intestine, Via Natural or Artificial Opening Endoscopic (ICD-10-PCS; CPT 45380; principal; 2023-06-23 08:30)
DX: Z12.11 Encounter for screening for malignant neoplasm of colon (principal); D12.3 Benign neoplasm of transverse colon; K57.30 Diverticulosis of large intestine without perforation or abscess without bleeding; I10 Essential (primary) hypertension; M19.90 Unspecified osteoarthritis, unspecified site; Z79.1 Long term (current) use of non-steroidal anti-inflammatories (NSAID); Z79.899 Other long term (current) drug therapy; Z91.040 Latex allergy status; Z88.5 Allergy status to narcotic agent; Z87.891 Personal history of nicotine dependence
CPT/HCPCS: 45380; 88305; J0330; J2704

== ENCOUNTER → 2023-06-23 06:45 | Outpatient (BNV) | payer OTHER, SELFPAY | PROVIDERS: PCP Internal Medicine; Visit Provider Surgery | DX: Z12.11 Encounter for screening for malignant neoplasm of colon (principal); K63.5 Polyp of colon; K57.90 Diverticulosis of intestine, part unspecified, without perforation or abscess without bleeding | CPT/HCPCS: 45380 ==

== ENCOUNTER 2023-09-20 08:35 | Outpatient (REF) | payer OTHER, SELFPAY ==
[2023-09-20 11:33] LABS: Alanine Aminotransferase 17 U/L (0-40); Albumin Level 4.4 g/dL (3.5-5.0); Alkaline Phosphatase 76 U/L (39-117); Anion Gap 12 (12-20); Aspartate Amino Transferase 18 U/L (5-37); Bilirubin Total 0.7 mg/dL (0.0-1.0); Blood Urea Nitrogen 15 mg/dL (9-16); Calcium 9.4 mg/dL (8.4-10.2); Carbon Dioxide 24 mmol/L (22-29); Chloride 111 mmol/L (96-108); Cholesterol 192 mg/dL (<200); Estimated Glomerular Filt Rate 56; Glucose Random 82 mg/dL (60-115); HDL Cholesterol 32 mg/dL (>40); LDL Cholesterol Calculated 138 mg/dL (<100); Sodium 143 mmol/L (135-145); Total Protein 7.4 g/dL (6.5-8.0); Triglycerides 114 mg/dL (<150)
[2023-09-20 11:40] LABS: Prostate Specific Antigen Scr 1.79 ng/mL (<0.05-4.0)
== END 2023-09-20 08:36 | disposition home or self-care (01) ==
LOC: HO.HHCL 08:35
PROVIDERS: Visit Provider Internal Medicine
DX: Z00.00 Encounter for general adult medical examination without abnormal findings (principal); I10 Essential (primary) hypertension; Z12.5 Encounter for screening for malignant neoplasm of prostate
CPT/HCPCS: 36415; 80053; 80061; 84153

== ENCOUNTER 2023-10-19 01:08 | Emergency (ER) | payer OTHER, SELFPAY ==
--- NOTE | ~2023-10-19 | XR_ITS ---
EXAMINATION: XR CERVICAL SPINE CLINICAL INFORMATION: Cervical radiculopathy. COMPARISON: None available. TECHNIQUE: 3 views of the cervical spine were obtained. FINDINGS: There is straightening of the expected cervical spine curvature. There is moderate C4-C5, C5-C6, C6-C7 and C7-T1 disc degenerative change with loss of disc space, endplate change and osteophytes. The bone mineralization is normal. No fracture is seen. The soft tissues are unremarkable. XR/XR cervical spine 3V IMPRESSION: 1. Moderate multilevel degenerative change of the cervical spine. 2. Straightening of the expected cervical spine curvature.
[2023-10-19 01:26] VITALS: BP 151/85; BP 160/80; PULSE 85; PULSE 90; RESP 16; TEMP 36.5; O2SAT 94; O2SAT 95
[2023-10-19] MEDS: Ketorolac Tromethamine 60 MG/2 ML VIAL IM (01:46)
[2023-10-19 02:00] VITALS: BP 136/82; PULSE 87; RESP 16; TEMP 36.5; O2SAT 94
--- NOTE | 2023-10-19 03:02 | ED_ITS ---
HPI - General Adult General Chief complaint: Extremity Problem Stated complaint: neck an back pain Time Seen by Provider: 10/19/23 01:20 Source: patient Mode of arrival: ambulatory Limitations: no limitations History of Present Illness ED Provider: Dr. Matt HPI narrative: Patient with a history of arthritis in his neck and back. Patient states that since the weather changed he has neck pain radiating down his right arm and low back pain. He denies injury. Onset (ago): day(s) Radiation: non-radiation and neck Severity: moderate Related Data Home Medications ?Medication ?Instructions ?Recorded ?Confirmed amlodipine 5 mg tablet 5 mg PO QAM 06/23/23 06/23/23 Previous Rx's ?Medication ?Instructions ?Recorded lidocaine 5 % topical patch 1 patch topical DAILY #15 ea 03/17/20 (Lidoderm) cyclobenzaprine 10 mg tablet 10 mg PO TID #10 tabs 10/19/23 naproxen 500 mg tablet (Naprosyn) 500 mg PO BID #20 tabs 10/19/23 Allergies Allergy/AdvReac Type Severity Reaction Status Date / Time latex [Latex] Allergy Intermediate UNKNOWN Verified 10/19/23 01:29 oxycodone AdvReac Intermediate ? Verified 10/19/23 01:29 pancreatitis Review of Systems Review of Systems: Yes all other systems are reviewed and are negative Neurologic: Denies Sensory deficit (Neuro) [facility] Past Medical History Medical History Hypertension Colon cancer screening Arthritis Difficulty sleeping Back pain Surgical History H/O colonoscopy No pertinent past surgical history Family History Family History Father Cancer Brother Cancer Social History Social History Alcohol intake: current Alcohol intake frequency: former alcohol drinker Patient Tobacco Use Status: Former Tobacco user Tobacco use type: Cigarette Years Smoked: 5 Do you have a plan to hurt others: No Plan Physical Exam ED Vital Signs: Vital Signs - 24 hr 10/19/23 01:26 10/19/23 02:00 Temperature 97.7 F 97.7 F Pulse Rate 85 87 Respiratory Rate 16 16 Blood Pressure 151/85 H 136/82 Pulse Oximetry 94 94 Oxygen Delivery Method Room Air Room Air BMI result Body Mass Index 30.0 Const Other: Thin male looking older than stated age Orientation/consciousness: oriented to person and patient oriented x3 Limitations: no limitations HENMT Head: Yes normal to inspection Ears: external ears normal General nose exam: Normal external nose present Mouth: Normal oral and palatal mucosa present and oropharynx normal Throat: Yes posterior oropharynx normal Eyes General: appearance normal, both eyes and all related structures Neck Other: right trapezius spasm Chest Chest palpation & inspection: normal inspection of the chest Resp Auscultation: clear to auscultation bilaterally Cardio Jugular venous distension: no JVD Rate: regular rate Rhythm: regular rhythm Heart sounds: S1 normal heart sound present and S2 normal heart sound present GI Inspection: Yes normal to inspection Palpation (GI): Soft to palpation, nontender and No hepatosplenomegaly present Auscultation: normal bowel sounds General: Yes no CVA tenderness Back/Spine/Pelvis Back: no CVA tenderness Skin General skin exam: no rashes or lesions noted Neuro General: oriented to person and patient oriented x3 Cranial nerves: Yes CN's II-XII intact bilaterally Motor exam (neuro): 5/5 motor strength present throughout Sensory Exam: No Sensory deficit (Neuro) Extrem General: Yes normal to inspection Psych Appearance: grossly normal Course Reevaluation(s) Reevaluation #1: xray: severe djd, will treat with nsaids and flexeril Time: 03:09 Medications Administered Discontinued Medications Generic Name Dose Route Start Last Admin Trade Name Freq PRN Reason Stop Dose Admin Ketorolac Tromethamine 60 mg 10/19/23 01:35 10/19/23 01:46 Ketorolac Tromethamine 60 Mg/2 Ml Vial IM 10/19/23 01:36 60 mg ONCE ONE Administration Medical Decision Making Differential Diagnosis Differential Diagnoses: The differential diagnosis associated with the presentation includes (cervical radiculopathy, lumbar pain) Independent Interpretation I performed an independent interpretation of an: Plain X-Ray (cervical: severe djd) Prescription Management I considered prescription management with: Pain Medication (will not give narcotic pain medication) Social Determinants Patient?s care significantly limited by Social Determinants of Health including: Low income Discharge Plan Discharge Clinical Impression: Cervical radiculopathy, Acute lumbar back pain Patient Disposition: Home, Self-Care Prescriptions: New cyclobenzaprine 10 mg tablet 10 mg PO TID Qty: 10 0RF naproxen [Naprosyn] 500 mg tablet 500 mg PO BID Qty: 20 0RF No Action lidocaine [Lidoderm] 5 % adhesive patch,medicated 1 patch topical DAILY Qty: 15 0RF Rx Instructions: leave on most painful area for up to 12 hrs amlodipine 5 mg tablet 5 mg PO QAM Print Language: Iranian
[2023-10-19 06:35] VITALS: BP 130/73; PULSE 80; RESP 14; TEMP 36.7
== END 2023-10-19 06:36 | disposition home or self-care (01) ==
PROVIDERS: Emergency Provider Emergency Medicine
DX: M54.12 Radiculopathy, cervical region (principal); M54.50 Low back pain, unspecified
CPT/HCPCS: 72040; 96372; 99284; J1885

== ENCOUNTER 2024-05-28 08:21 | Outpatient (REF) | payer OTHER, SELFPAY ==
[2024-05-28 11:38] LABS: Anion Gap 12 (12-20); Blood Urea Nitrogen 16 mg/dL (9-16); Calcium 9.5 mg/dL (8.4-10.2); Carbon Dioxide 25 mmol/L (22-29); Chloride 110 mmol/L (96-108); Cholesterol 185 mg/dL (<200); Estimated Glomerular Filt Rate 58; Glucose Random 86 mg/dL (60-115); HDL Cholesterol 33 mg/dL (>40); LDL Cholesterol Calculated 133 mg/dL (<100); Potassium 3.8 mmol/L (3.3-5.1); Sodium 143 mmol/L (135-145); Triglycerides 98 mg/dL (<150)
== END 2024-05-28 08:22 | disposition home or self-care (01) ==
LOC: HO.HHCL 08:21
PROVIDERS: Visit Provider Internal Medicine
DX: E78.2 Mixed hyperlipidemia (principal); I10 Essential (primary) hypertension
CPT/HCPCS: 36415; 80048; 80061

== ENCOUNTER → 2024-09-07 20:52 | Outpatient (BNV) | payer OTHER, SELFPAY | PROVIDERS: Emergency Provider Emergency Medicine Emergency Medical Services; PCP Internal Medicine; Visit Provider Specialist | DX: I51.7 Cardiomegaly (principal); K44.9 Diaphragmatic hernia without obstruction or gangrene | CPT/HCPCS: 71046; 71275; 74177 ==

== ENCOUNTER 2024-09-07 21:12 | Inpatient (IN) | payer OTHER, SELFPAY ==
--- NOTE | 2024-09-07 | ECG_ITS ---
Test Reason : SHORTNESS OF BREATH Blood Pressure : */* mmHG Vent. Rate : 113 BPM Atrial Rate : 113 BPM P-R Int : 158 ms QRS Dur : 82 ms QT Int : 338 ms P-R-T Axes : 7 -43 32 degrees QTcB Int : 463 ms Sinus tachycardia Left axis deviation Possible Anterior infarct (cited on or before 22-Apr-2018) Abnormal ECG When compared with ECG of 03-May-2018 10:59, No significant change was found Referred By: Generic ED Physician Electronically Signed By: EDGAR ANAYA
--- NOTE | ~2024-09-07 | CT_ITS ---
CLINICAL HISTORY: left sided pain fever elevated wbc CT abdomen and pelvis with contrast Comparison: None provided Findings: Examination limited and degraded by artifact. Right basilar consolidation suggestive of pneumonia. No pleural effusion. There is a large hiatal hernia with most of the stomach in the chest extending to the left hemithorax with compressive atelectasis in the left lung base. The gallbladder is unremarkable. No biliary ductal dilatation. Within limitations of motion artifact, the liver and spleen are within normal limits. Pancreas is unremarkable. Adrenal glands are normal. Enhancement of bilateral kidneys no ureteral stones and no hydronephrosis or hydroureter. A 2.7 cm and 3.1 cm left renal cysts. 1.5 cm right renal cyst. Additional subcentimeter right renal hypodense lesion which is too small to be fully characterized. No bowel obstruction, pneumoperitoneum, or pneumatosis. Colonic diverticulosis with no CT evidence of acute diverticulitis. Moderate stool in rectosigmoid. No free fluid or loculated fluid collection. Normal appendix. Prostate is enlarged measuring 5.3 cm x 4.6 cm. Correlate with PSA level. Urinary bladder is within normal limits. Atherosclerotic vascular disease with no aneurysm of the abdominal aorta. No acute fracture. Degenerative changes of the spine. IMPRESSION: 1. Right basilar consolidation suspicious for pneumonia. 2. Large hiatal hernia with most of the stomach in the chest extending to the left hemithorax with compressive atelectasis in left lung base. 3. No acute findings in the abdomen and pelvis 4. Colonic diverticulosis, renal cysts and additional nonacute findings as described. This document has been electronically signed by: Ana Brunson MD on 09/08/2024 01:06:26
--- NOTE | ~2024-09-07 | XR_ITS ---
EXAMINATION: XR FOOT 1-2 VIEWS RIGHT HISTORY: foot pain COMPARISON: There are no prior studies available for comparison. FINDINGS: Three views of the right foot are submitted. Osseous mineralization is normal. There is no fracture or dislocation. The joint spaces are preserved. There is a plantar calcaneal spur. There are vascular calcifications. XR/XR foot RT 2V IMPRESSION: Electronically signed by: Nick Shin MD 09/10/2024 08:42 AM EDT
--- NOTE | ~2024-09-07 | XR_ITS ---
CLINICAL HISTORY: sob 2 view chest x-ray Comparison: None provided Findings: The heart is enlarged. Atherosclerotic vascular disease of the aortic arch. Mild interstitial thickening especially in the right lung. No pleural effusion or pneumothorax. Moderate hiatal hernia/diaphragmatic hernia. No acute fracture. IMPRESSION: 1. Cardiac enlargement and mild interstitial prominence may represent low-grade congestive heart failure. Correlate clinically. 2. Moderate hiatal hernia/ diaphragmatic hernia. This document has been electronically signed by: Ana Brunson MD on 09/07/2024 22:49:40
--- NOTE | ~2024-09-07 | CT_ITS ---
CLINICAL HISTORY: cough, sob, cp CT angiography chest with contrast. 3D Postprocessing. Comparison: None provided Findings: The heart size is within normal limits. RV/LV ratio is normal. No pericardial effusion. Atherosclerotic vascular disease with no aneurysm of the thoracic aorta. Coronary artery disease. Limited evaluation in the lung bases due to motion artifact but otherwise no intraluminal filling defects in pulmonary arterial vessels. Main pulmonary artery within normal limits in size. Airspace opacity in the right lung base. Focal opacity in the right upper lobe inferiorly abutting the fissure. Large hiatal hernia with most of the stomach in the chest extending to the left hemithorax with adjacent compressive atelectasis. No pleural effusion or pneumothorax. Thyroid not well visualized due to artifact. Thoracic esophagus within normal limits. Images of upper abdomen demonstrate no acute process. No acute fracture. Degenerative changes of the spine. IMPRESSION: 1. No pulmonary embolus with limitation of evaluation of the lung bases by motion artifact. 2. Right basilar airspace opacity likely pneumonia. Right upper lobe focal opacity also likely representing pneumonia. 3. Large hiatal hernia extending to the left hemithorax with adjacent left lower lobe compressive atelectasis. 4. Additional nonacute findings as described. This document has been electronically signed by: Ana Brunson MD on 09/08/2024 01:13:12
[2024-09-07 21:15] VITALS: BP 176/89; PULSE 106; O2SAT 95
[2024-09-07 21:21] VITALS: PULSE 114; RESP 33; TEMP 36.9; O2SAT 93; BMI 28.3
[2024-09-07 21:30] VITALS: BP 151/80; PULSE 101; RESP 29; TEMP 36.9; O2SAT 93
[2024-09-07 21:42] LABS: MANUAL DIFF FLAG NO
[2024-09-07 21:44] LABS: Hematocrit 38.1 % (42.0-52.0); Hemoglobin 13.7 g/dl (14.0-18.0); Imm Gran Abs Auto 0.31 X10*3/uL (0.00-0.03); Imm Gran Pct Auto 1.7 % (0.0-0.4); Lymphocytes Absolute Auto 1.3 X10*3/uL (1.2-4.9); Mean Corpuscular HGB Conc 36.0 g/dl (31.0-36.0); Mean Corpuscular Hemoglobin 31.1 pg (27.0-33.0); Mean Corpuscular Volume 86.4 fL (80.0-98.0); NRBC Abs Auto 0.000 X10*3/uL (0.0-0.012); NRBC Pct Auto 0.0 /100WBC (0.0-0.2); Platelet Count 259 X10*3/uL (160-400); Red Blood Count 4.41 X10*6/uL (4.60-5.80); White Blood Count 18.3 X10*3/uL (4.8-10.8)
[2024-09-07 21:59] LABS: Alanine Aminotransferase 35 U/L (0-40); Albumin Level 4.0 g/dL (3.5-5.0); Alkaline Phosphatase 78 U/L (39-117); Anion Gap 15 (12-20); Aspartate Amino Transferase 65 U/L (5-37); Blood Urea Nitrogen 19 mg/dL (9-16); Calcium 9.4 mg/dL (8.4-10.2); Carbon Dioxide 21 mmol/L (22-29); Chloride 107 mmol/L (96-108); Creatinine Clr Calc Pharmacy 53.4; Estimated Glomerular Filt Rate > 60; Magnesium 1.9 mg/dL (1.6-2.6); Potassium 3.3 mmol/L (3.3-5.1); Sodium 140 mmol/L (135-145); Total Protein 7.5 g/dL (6.5-8.0)
[2024-09-07 22:05] LABS: Troponin-I High Sensitivity 6.1 ng/L (<3.5-35.0)
[2024-09-07 22:21] VITALS: BP 149/77; PULSE 107; RESP 27; TEMP 38.5; O2SAT 98
[2024-09-07 22:21] LABS: Resp Syncy Virus RNA Qual PCR NEGATIVE (Negative); SARS COV2 PCR INHOUSE NEGATIVE (Negative)
--- NOTE | 2024-09-07 22:27 | PC.NURSE ---
Dr Gastelum notified patient WBC 18 now febrile at 101.8
[2024-09-07 22:54] LABS: Appearance Urine Clear; Glucose Urine UA Negative (Negative); PH 5.5 (5.0-9.0); Specific Gravity - Urine 1.020 (1.005-1.025); UMIC TRIGGER UACC YES
--- NOTE | 2024-09-07 23:23 | ED_ITS ---
HPI - SOB/Dyspnea General Chief Complaint: Dyspnea Stated Complaint: chronic back pain, chest pain hx 5days, cough Time Seen by Provider: 09/07/24 22:41 History of Present Illness HPI Narrative: Patient is a 73-year-old male presents today with shortness of breath coughing upper respiratory symptoms that is been ongoing for 5 days. Feeling very weak and tired. Had a fever at home. Has pain to the lower back. The pain in the back is more chronic. Patient has pain and difficulty when he breathes. Positive history of hypertension positive chronic history of back pain patient from home vaccinated Related Data Home Medications ?Medication ?Instructions ?Recorded ?Confirmed amlodipine 5 mg tablet 5 mg PO QAM 06/23/23 4 Previous Rx's ?Medication ?Instructions ?Recorded lidocaine 5 % topical patch 1 patch topical DAILY #15 ea 03/17/20 (Lidoderm) cyclobenzaprine 10 mg tablet 10 mg PO TID #10 tabs 11/03 naproxen 500 mg tablet (Naprosyn) 500 mg PO BID #20 ta bs 10/19/23 Allergies Allergy/AdvReac Type Severity Reaction Status Date / Time latex (Latex) Allergy Intermediate UNKNOWN Verified 09/07/24 21:27 oxycodone AdvReac Intermediate ? Verified 09/07/24 21:27 pancreatitis Review of Systems 2 Review of Systems: Positive coughing positive fever positive generalized malaise positive lower back pain Yes all other systems are reviewed and are negative [facility] Past Medical History Attestation statement: The following information was validated with the patient. Medical History Hypertension Colon cancer screening Arthritis Difficulty sleeping Back pain Surgical History H/O colonoscopy No pertinent past surgical history Family History Family History Father Cancer Brother Cancer Social History Social History Alcohol intake: current Alcohol intake frequency: does not drink Patient Tobacco Use Status: Former Tobacco user Tobacco use type: Cigarette Years Smoked: 5 Smoked in Last 30 Days: No Use of substances other than those prescribed or required for medical reasons: No Advance Directives: No Advance Directives Information Provided: No Physical Exam 2 Vital Signs: Vital Signs: Last Vital Signs Temp 99.2 F 09/07/24 23:36 Pulse 95 09/07/24 23:36 Resp 26 H 09/07/24 23:36 BP 135/73 09/07/24 23:36 Pulse Ox 95 09/07/24 23:36 O2 Del Method Room Air 09/07/24 23:36 BMI result Body Mass Index 28.3 Appearance: Alert. Oriented X3. No acute distress. Eyes: Pupils equal, round and reactive to light. ENT: Pharynx normal. Neck: Normal inspection. Neck supple. No lymph nodes noted. No crepitus CVS: Normal heart rate and rhythm. Pulses normal. Normal S1 and S2 Respiratory: No respiratory distress. Breath sounds normal. No Wheezing. No rales Abdomen: Soft and nontender. No rigidity. No distention. good BS x4 Skin: Skin warm and dry. Normal skin color. Normal skin turgor. Extremities: No lower extremity edema. Neurovascular intact to all extremities. No Lacerations. No Rash Neuro: Oriented X 3. No motor deficit. No sensory deficit. Moving all extermities. No slurred speech Medications Administered Discontinued Medications Generic Name Dose Route Start Last Admin Trade Name Freq PRN Reason Stop Dose Admin Acetaminophen 650 mg 09/07/24 22:28 09/07/24 22:33 Acetaminophen 325 Mg Tablet PO 09/07/24 22:29 650 mg ONCE ONE Administration Azithromycin 500 mg 09/07/24 22:58 09/07/24 23:14 Azithromycin 500 Mg Tablet PO 09/07/24 22:59 500 mg ONCE ONE Administration Ceftriaxone Sodium 2 gm 09/07/24 22:58 09/07/24 23:14 Ceftriaxone Sodium 2 Gm Vial IVPUSH 09/07/24 22:59 2 gm ONCE ONE Administration Sodium Chloride 1,000 mls @ 999 mls/hr 09/07/24 23:00 09/07/24 23:15 Ns IV 09/08/24 00:00 999 mls/hr .Q1H1M GABRIELLA Administration Sodium Chloride 1,000 mls @ 999 mls/hr 09/07/24 23:30 09/08/24 00:33 Ns IV 09/08/24 00:30 999 mls/hr .Q1H1M GABRIELLA Administration Iohexol 85 ml 09/07/24 23:59 09/08/24 00:00 Iohexol 350 Mg/Ml 100 Ml Infus..Btl IV 09/08/24 00:00 85 ml ONCE ONE Administration Medical Decision Making Medical Decision Making [facility] Narrative: Fair appearing nonacute distress positive elevated white count of 18 positive cough upper respiratory symptoms cultures are obtained. Lactate was 2.1. Will give boluses of IV fluids. Tylenol for fever. Will monitor carefully. A CTA of the chest was ordered to rule out the possibility of PE as patient's chest x- ray was grossly negative. Also to look for additional infiltrate Patient is has chest pain worse with movement worse with deep breath. Positive coughing upper respiratory symptoms. Had a low-grade fever. CT angio of the chest was done. My interpretation was that there is no large PE. There is evidence for a left lower lobe infiltrate. Patient's CT of the abdomen was grossly negative for obstruction abscess perforation. Had a slight elevated lactate and an elevated white count consistent with pneumonia. Given patient's age of [age] pre-existing illness. Will admit patient for pneumonia. Currently in stable condition. Antibiotic was given. Patient's flu COVID RSV was all negative. Patient's urine was negative for infection. 1245 a.m. after giving patient IV fluids. Patient was reassessed. Repeat focal exam for sepsis was done. Clinically improving. No acute distress. Differential Diagnosis Differential Diagnoses: The differential diagnosis associated with the presentation includes Pneumonia, PE, pneumothorax, abdominal pathology Admission/Observation Consideration of admission/observation: Escalation of care including admission/observation considered Consult Healthcare Provider Management of the patient was discussed with: Hospitalist Lab Data [facility] Lab Attestation statement: I reviewed the patient's lab results. 09/07/24 21:36 09/07/24 21:36 Labs: Lab Results 09/07/24 09/07/24 09/07/24 Range/Units 19:18 21:36 21:38 WBC 18.3 H (4.8-10.8) X10*3/uL RBC 4.41 L (4.60-5.80) X10*6/uL Hgb 13.7 L (14.0-18.0) g/dl Hct 38.1 L (42.0-52.0) % MCV 86.4 (80.0-98.0) fL MCH 31.1 (27.0-33.0) pg MCHC 36.0 (31.0-36.0) g/dl RDW 12.8 (11.0-16.0) % Plt Count 259 (160-400) X10*3/uL MPV 9.8 (9.4-12.4) fL Immature Gran % (Auto) 1.7 H (0.0-0.4) % Neut % (Auto) 82.9 H (45-73) % Lymph % (Auto) 7.1 L (20-40) % [place] % (Auto) 7.8 (2-11) % Eos % (Auto) 0.2 (0-4) % Baso % (Auto) 0.3 (0-2) % Lymph # (Auto) 1.3 (1.2-4.9) X10*3/uL [place] # (Auto) 1.4 H (0.1-1.2) X10*3/uL Eos # (Auto) 0.0 (0.0-0.4) X10*3/uL Baso # (Auto) 0.1 (0.0-0.2) X10*3/uL Abs Immat Gran (auto) 0.31 H (0.00-0.03) X10*3/uL Absolute Neuts (auto) 15.1 H (2.0-8.3) x10*3/uL Absolute Nucleated RBC 0.000 (0.0-0.012) X10*3/uL Nucleated RBC % (auto) 0.0 (0.0-0.2) /100WBC Sodium 140 (135-145) mmol/L Potassium 3.3 (3.3-5.1) mmol/L Chloride 107 (96-108) mmol/L Carbon Dioxide 21 L (22-29) mmol/L Anion Gap 15 (12-20) BUN 19 H (9-16) mg/dL Creatinine 1.14 (0.5-1.4) mg/dL Estim Creat Clear Calc 53.4 Estimated GFR > 60 Random Glucose 122 H (60-115) mg/dL Lactic Acid (0.5-2.0) mmol/L Calcium 9.4 (8.4-10.2) mg/dL Magnesium 1.9 (1.6-2.6) mg/dL Total Bilirubin 0.8 (0.0-1.0) mg/dL AST 65 H (5-37) U/L ALT 35 (0-40) U/L Alkaline Phosphatase 78 (39-117) U/L Troponin I High Sens 6.1 (<3.5-35.0) ng/L Total Protein 7.5 (6.5-8.0) g/dL Albumin 4.0 (3.5-5.0) g/dL Urine Color Urine Appearance Urine pH (5.0-9.0) Ur Specific [place] (1.005-1.025) Urine Protein (Neg-Trace) mg/dL Urine Glucose (UA) (Negative) mg/dL Urine Ketones (Negative) mg/dL Urine Blood (Negative) Urine Nitrite (Negative) Ur Leukocyte Esterase (Negative) Urine RBC (0-2) /HPF Urine WBC (0-5) /HPF Ur Squamous Epith Cells (0-2) /HPF Urine Bacteria (None Seen) Hyaline Casts (0-2) /LPF Influenza Type A (PCR) NEGATIVE (Negative) Influenza Type B (PCR) NEGATIVE (Negative) RSV RNA Qual (PCR) NEGATIVE (Negative) SARS-CoV-2 RNA (RT-PCR) NEGATIVE (Negative) 09/07/24 Range/Units 22:47 WBC (4.8-10.8) X10*3/uL RBC (4.60-5.80) X10*6/uL Hgb (14.0-18.0) g/dl Hct (42.0-52.0) % MCV (80.0-98.0) fL MCH (27.0-33.0) pg MCHC (31.0-36.0) g/dl RDW (11.0-16.0) % Plt Count (160-400) X10*3/uL MPV (9.4-12.4) fL Immature Gran % (Auto) (0.0-0.4) % Neut % (Auto) (45-73) % Lymph % (Auto) (20-40) % [place] % (Auto) (2-11) % Eos % (Auto) (0-4) % Baso % (Auto) (0-2) % Lymph # (Auto) (1.2-4.9) X10*3/uL [place] # (Auto) (0.1-1.2) X10*3/uL Eos # (Auto) (0.0-0.4) X10*3/uL Baso # (Auto) (0.0-0.2) X10*3/uL Abs Immat Gran (auto) (0.00-0.03) X10*3/uL Absolute Neuts (auto) (2.0-8.3) x10*3/uL Absolute Nucleated RBC (0.0-0.012) X10*3/uL Nucleated RBC % (auto) (0.0-0.2) /100WBC Sodium (135-145) mmol/L Potassium (3.3-5.1) mmol/L Chloride (96-108) mmol/L Carbon Dioxide (22-29) mmol/L Anion Gap (12-20) BUN (9-16) mg/dL Creatinine (0.5-1.4) mg/dL Estim Creat Clear Calc Estimated GFR Random Glucose (60-115) mg/dL Lactic Acid 2.1 H* (0.5-2.0) mmol/L Calcium (8.4-10.2) mg/dL Magnesium (1.6-2.6) mg/dL Total Bilirubin (0.0-1.0) mg/dL AST (5-37) U/L ALT (0-40) U/L Alkaline Phosphatase (39-117) U/L Troponin I High Sens (<3.5-35.0) ng/L Total Protein (6.5-8.0) g/dL Albumin (3.5-5.0) g/dL Urine Color Yellow Urine Appearance Clear Urine pH 5.5 (5.0-9.0) Ur Specific [place] 1.020 (1.005-1.025) Urine Protein 100 (2+) H (Neg-Trace) mg/dL Urine Glucose (UA) Negative (Negative) mg/dL Urine Ketones 15 (Negative) mg/dL Urine Blood Moderate (2+) H (Negative) Urine Nitrite Negative (Negative) Ur Leukocyte Esterase Negative (Negative) Urine RBC 0-2 (0-2) /HPF Urine WBC 0-5 (0-5) /HPF Ur Squamous Epith Cells 3-5 (0-2) /HPF Urine Bacteria None Seen (None Seen) Hyaline Casts 0-2 (0-2) /LPF Influenza Type A (PCR) (Negative) Influenza Type B (PCR) (Negative) RSV RNA Qual (PCR) (Negative) SARS-CoV-2 RNA (RT-PCR) (Negative) Independent Interpretation I performed an independent interpretation of an: Plain X-Ray (Grossly negative) and CT Scan (Left lower lobe infiltrate.) Radiology Impression Discussion of test interpretation with radiology: I have reviewed the radiologist's reading. External Record Review External record reviewed: Office record Chronic Conditions History of back pain. History of hypertension Social Determinants Patient?s care significantly limited by Social Determinants of Health including: Problems related to primary support group Critical Care Time Critical Care Time Critical Care Time: Yes Total Critical Care Time: 40 Attestation: I have personally provided 40 minutes of critical care time exclusive of time spent on separately billable procedures. ?Time includes review of lab data, radiology results, discussion with consultants, and monitoring for potential decompensation. ?Interventions were performed as documented above Discharge Plan Discharge Clinical Impression: Pneumonia Patient Disposition: Admitted As Inpatient Print Language: [place]
--- NOTE | 2024-09-07 23:34 | PC.NURSE ---
alert and oriented at this time. appears calm. tachypneic at 30 bpm, occasionally nonproductive cough. SpO2 94% on room air. fluids running. additional #18 PIV established to RW
[2024-09-07 23:36] VITALS: BP 135/73; PULSE 95; RESP 26; TEMP 37.3; O2SAT 95
[2024-09-08] VITALS (8 sets, daily range): BP systolic 134–172; BP diastolic 70–92; PULSE 84–103; RESP 17–26; TEMP 36.3–37.1; O2SAT 92–95; BMI 28.3
[2024-09-08] MEDS: iohexoL 350 MG/ML 100 ML INFUS..BTL 85 ML IV
[2024-09-08 00:50] LABS: Reflex Lactate? Lactic Acid Added
--- NOTE | 2024-09-08 01:34 | P.HPHOSP_ITS ---
History of Present Illness Date of Service: 09/08/24 Attending physician on admission: Sirisha Trinidad Chief Complaint: Cough Oscar Lees is a 73 years old man with past medical history significant for hypertension presents to the emergency department complaining of 5 day history of persistent dry cough associated with mild headache, fever and chills. He denies shortness or breath or chest pain. She also denied any acute gastrointestinal or genitourinary symptoms. Denied contact with ill people or recent travel history. He is a former tobacco smoker -quit in 2006. 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 Denied marijuana smoking or illicit drug use. He is not currently taking any medication. In the ED, the patient was found to have fever of 101.3, tachycardia and tachypnea. Blood pressure is elevated. Last blood pressure is 135/73. Blood workup showed leukocytosis of 18.3. Hemoglobin 13.7 and platelets 259. There are no electrolyte imbalances. CO2 is 21 and anion gap is normal. BUN is 19 creatinine 1.14. Lactic acid is minimally elevated, 2.1. LFTs are normal except AST, 65. Troponin is 6.1. Urinalysis showed proteinuria 2+, blood 2+ with normal RBC 0-2. Viral testing is negative for influenza, RSV and COVID-19. Chest CTA showed no pulmonary embolism. It did showed findings likely representing pneumonia of the right basilar region and RUL. It is showed a large hiatal hernia extending to the left hemithorax with adjacent left lower lobe compressive atelectasis; colonic diverticulosis. ECG shows sinus tachycardia, 113 bpm, left axis deviation and no acute ischemic changes. ED tx: Acetaminophen 650 mg p.o., NS 2 L bolus, ceftriaxone 2 g IV, azithromycin 500 mg IV Review of Systems 2 Review of Systems: All 12 systems were reviewed and normal except as noted in HPI. [facility] Medical History (Updated 09/08/24 @ 02:04 by Sirisha Trinidad MD) Hypertension Colon cancer screening Arthritis Difficulty sleeping Back pain Family History Father Cancer Brother Cancer Surgical History H/O colonoscopy No pertinent past surgical history Social History Alcohol intake: current Alcohol intake frequency: does not drink Patient Tobacco Use Status: Former Tobacco user Tobacco use type: Cigarette Years Smoked: 5 Smoked in Last 30 Days: No Use of substances other than those prescribed or required for medical reasons: No Advance Directives: No Advance Directives Information Provided: No Meds Allergies Allergy/AdvReac Type Severity Reaction Status Date / Time latex (Latex) Allergy Intermediate UNKNOWN Verified 09/07/24 21:27 oxycodone AdvReac Intermediate ? Verified 09/07/24 21:27 pancreatitis Active Medications: Current Medications Acetaminophen (Acetaminophen 325 Mg Tablet) 975 mg PO Q6H PRN PRN Reason: Pain, Mild 1-3,fever,headache Enoxaparin Sodium (Enoxaparin Sodium 40 Mg/0.4 Ml Syringe) 40 mg SUBCUT Q24H GABRIELLA Sodium Chloride (0.9 % Sodium Chloride Flush 3 Ml Syringe) 3 ml IVFLUSH QSHIFT GABRIELLA Home Medications ?Medication ?Instructions ?Recorded ?Confirmed ?Last Taken ?Type amlodipine 5 mg tablet 5 mg PO QAM 06/23/23 4 Unknown History Physical Exam 2 Vital Signs and Narrative: Vital Signs: Last Vital Signs Temp 99.2 F 09/07/24 23:36 Pulse 95 09/07/24 23:36 Resp 26 H 09/07/24 23:36 BP 135/73 09/07/24 23:36 Pulse Ox 95 09/07/24 23:36 O2 Del Method Room Air 09/07/24 23:36 BMI result Body Mass Index 28.3 Constitutional - Awake and Alert, No apparent distress. Constantly coughing. Cooperative. HEENT - PER, EOMI. Normal oropharynx. Heart - RRR, No murmurs Lungs - Normal lung expansion, Normal respiratory effort, No respiratory distress. Tachypnea. Right lower base crackles. No wheezing. No rhonchi. Abdomen - NT / ND; +BS; No rebound or guarding Extremities - no calf tenderness bilaterally, no swelling Musculoskeletal - Normal inspection, normal ROM Skin - Warm/Dry. No pallor. No jaundice. Neurological - Alert & oriented x3. Patient moves all extremities spontaneously. Normal speech. Psychological - Appropriate affect Results Labs 09/07/24 21:36 09/07/24 21:36 Labs: Laboratory Results - last 24 hr 09/07/24 09/07/24 09/07/24 19:18 21:36 21:38 MCV 86.4 MCH 31.1 MCHC 36.0 RDW 12.8 Plt Count 259 MPV 9.8 Immature Gran % (Auto) 1.7 H Neut % (Auto) 82.9 H Lymph % (Auto) 7.1 L [place] % (Auto) 7.8 Eos % (Auto) 0.2 Baso % (Auto) 0.3 Lymph # (Auto) 1.3 [place] # (Auto) 1.4 H Eos # (Auto) 0.0 Baso # (Auto) 0.1 Abs Immat Gran (auto) 0.31 H Absolute Neuts (auto) 15.1 H Absolute Nucleated RBC 0.000 Nucleated RBC % (auto) 0.0 Anion Gap 15 Estim Creat Clear Calc 53.4 Estimated GFR > 60 Random Glucose 122 H Lactic Acid Calcium 9.4 Magnesium 1.9 Total Bilirubin 0.8 AST 65 H ALT 35 Alkaline Phosphatase 78 Troponin I High Sens 6.1 Total Protein 7.5 Albumin 4.0 Urine Color Urine Appearance Urine pH Ur Specific [place] Urine Protein Urine Glucose (UA) Urine Ketones Urine Blood Urine Nitrite Ur Leukocyte Esterase Urine RBC Urine WBC Ur Squamous Epith Cells Urine Bacteria Hyaline Casts Influenza Type A (PCR) NEGATIVE Influenza Type B (PCR) NEGATIVE RSV RNA Qual (PCR) NEGATIVE SARS-CoV-2 RNA (RT-PCR) NEGATIVE 09/07/24 22:47 MCV MCH MCHC RDW Plt Count MPV Immature Gran % (Auto) Neut % (Auto) Lymph % (Auto) [place] % (Auto) Eos % (Auto) Baso % (Auto) Lymph # (Auto) [place] # (Auto) Eos # (Auto) Baso # (Auto) Abs Immat Gran (auto) Absolute Neuts (auto) Absolute Nucleated RBC Nucleated RBC % (auto) Anion Gap Estim Creat Clear Calc Estimated GFR Random Glucose Lactic Acid 2.1 H* Calcium Magnesium Total Bilirubin AST ALT Alkaline Phosphatase Troponin I High Sens Total Protein Albumin Urine Color Yellow Urine Appearance Clear Urine pH 5.5 Ur Specific [place] 1.020 Urine Protein 100 (2+) H Urine Glucose (UA) Negative Urine Ketones 15 Urine Blood Moderate (2+) H Urine Nitrite Negative Ur Leukocyte Esterase Negative Urine RBC 0-2 Urine WBC 0-5 Ur Squamous Epith Cells 3-5 Urine Bacteria None Seen Hyaline Casts 0-2 Influenza Type A (PCR) Influenza Type B (PCR) RSV RNA Qual (PCR) SARS-CoV-2 RNA (RT-PCR) Assessment and Plan (1) Pneumonia: Qualifiers: Pneumonia type: due to unspecified organism Laterality: right Lung location: lower lobe of lung Qualified Code(s): J18.9 - Pneumonia, unspecified organism Status: Acute (2) Hypertension: Qualifiers: Hypertension type: primary hypertension Qualified Code(s): I10 - Essential (primary) hypertension Status: Acute (3) Acute lactic acidosis: Status: Acute Plan Oscar Lees is a 73 y/o man admitted with: * Right lower and upper lobes pneumonia. Admit to hospitalist service. Continue empiric IV antibiotic therapy with ceftriaxone and azithromycin. Antitussive therapy. Bronchodilator therapy as needed. * Essential hypertension. Patient has run out of medications. Will order amlodipine. * Acute lactic acidosis, tachycardia, fever and tachypnea, improving. Secondary to pneumonia. No severe sepsis. NS 2 L bolus given in ED. blood culture obtained -will follow results. Repeat lactic acid. Continue to monitor. DVT prophylaxis: Lovenox Code status: Full Patient admitted hospitalization for at least 2 midnights for right-sided pneumonia treatment with IV antibiotic therapy in the settings of advanced age. Quality Stroke Does the patient have a stroke diagnosis?: No VTE Prior VTE?: No VTE Risk Level:: Medical - moderate - high VTE Device Contraindication: Treatment Not Indicated VTE Drug Contraindication: N/A - Med Ordered
[2024-09-08] MEDS: guaiFEN/Codeine SF 200/20/10ML 10 ML LIQUID 5 ML PO ×4 (01:59→23:31)
[2024-09-08 02:10] LABS: ~Lactic Acid-LAB USE ONLY 1.5 mmol/L (0.5-2.0)
--- NOTE | 2024-09-08 02:58 | PC.NURSE ---
single episode of urinary incontinence. cleaned, changed into hospital pants.
[2024-09-08] MEDS: guaiFENesin LA 600 MG TAB.ER.12H 1200 MG PO (04:01)
[2024-09-08 05:18] LABS: Hematocrit 36.2 % (42.0-52.0); Hemoglobin 12.8 g/dl (14.0-18.0); Imm Gran Abs Auto 0.39 X10*3/uL (0.00-0.03); Imm Gran Pct Auto 2.0 % (0.0-0.4); Lymphocytes Absolute Auto 2.1 X10*3/uL (1.2-4.9); MANUAL DIFF FLAG SCAN; Mean Corpuscular HGB Conc 35.4 g/dl (31.0-36.0); Mean Corpuscular Hemoglobin 31.0 pg (27.0-33.0); Mean Corpuscular Volume 87.7 fL (80.0-98.0); NRBC Abs Auto 0.000 X10*3/uL (0.0-0.012); NRBC Pct Auto 0.0 /100WBC (0.0-0.2); Platelet Count 248 X10*3/uL (160-400); Red Blood Count 4.13 X10*6/uL (4.60-5.80); SCAN SMEAR FLAG 1; White Blood Count 19.4 X10*3/uL (4.8-10.8)
[2024-09-08 05:36] LABS: Anion Gap 14 (12-20); Blood Urea Nitrogen 16 mg/dL (9-16); Calcium 9.1 mg/dL (8.4-10.2); Carbon Dioxide 20 mmol/L (22-29); Chloride 113 mmol/L (96-108); Creatinine Clr Calc Pharmacy 57.4; Estimated Glomerular Filt Rate > 60; Magnesium 1.9 mg/dL (1.6-2.6); Potassium 3.4 mmol/L (3.3-5.1); Sodium 144 mmol/L (135-145)
--- NOTE | 2024-09-08 08:24 | PHA.MEDREC ---
Pharmacy Consult ? Medication Reconciliation Pharmacy has completed the medication reconciliation. [employer] services used, spoke to patient at bedside who noted he takes no medications at all, that he is supposed to but stopped. Claim hx for amlodipine 5mg from May 2024 x 30 days
[2024-09-08] MEDS: 0.9 % Sodium Chloride Flush 3 ML SYRINGE IVFLUSH ×3 (08:41→19:55)
[2024-09-08 09:05] LABS: Procalcitonin 4.48 ng/mL
[2024-09-08 09:31] LABS: Chlamydia pneumoniae PCR Not Detected (Not Detect.); Coronavirus 229E PCR Not Detected (Not Detect.); Coronavirus HKU1 PCR Not Detected (Not Detect.); Coronavirus NL63 PCR Not Detected (Not Detect.); Coronavirus OC43 PCR Not Detected (Not Detect.); RSV PCR Not Detected (Not Detect.); Rhino/Enterovirus PCR Not Detected (Not Detect.)
[2024-09-08 10:21] LABS: Influenza A H1 PCR Not Detected (Not Detect.); Influenza A H1-2009 PCR Not Detected (Not Detect.); Influenza A H3 PCR Not Detected (Not Detect.); SARS-CoV-2 PCR Not Detected (Not Detect.)
--- NOTE | 2024-09-08 11:27 | HO.PM.IMPN ---
Subjective Subjective Date of Service: 09/08/24 Interval History: now off oxygen dyspnea + cough improved T 101.3 overnight; now afebrile This history was taken in Georgian from the patient. Review of Systems Review of Systems: Yes all other systems are reviewed and are negative Physical Exam Vital Signs: Vital Signs: Last Vital Signs Temp 97.6 F 09/08/24 09:28 Pulse 90 09/08/24 09:28 Resp 18 09/08/24 09:28 BP 172/91 H 09/08/24 09:28 Pulse Ox 92 09/08/24 09:28 O2 Del Method Room Air 09/08/24 09:28 BMI result Body Mass Index 28.3 Gen: in no acute distress HEENT: sclera anicteric, moist mucus membranes Neck: supple Lungs: inspiratory crackles on R side Heart: regular rate and rhythm, no murmurs Abd: soft, non-tender, non-distended Ext: no edema Skin: warm/well-perfused Neuro: alert and oriented x3, no focal findings Psych: appropriate affect Objective Data Active Medications Acetaminophen (Acetaminophen 325 Mg Tablet) 975 mg PO Q6H PRN PRN Reason: Pain, Mild 1-3,fever,headache Albuterol Sulfate (Albuterol Sulfate (0.083%) 2.5 Mg/3 Ml Vial.Neb) 2.5 mg INHALE Q3H PRN PRN Reason: Wheezing Amlodipine Besylate (Amlodipine Besylate 5 Mg Tablet) 5 mg PO DAILY [facility]; Protocol Last Admin: 09/08/24 08:38 Dose: 5 mg Documented By: SANDRA Benzonatate (Benzonatate 100 Mg Capsule) 200 mg PO TID PRN PRN Reason: Cough Last Admin: 09/08/24 04:01 Dose: 200 mg Documented By: LB Ceftriaxone Sodium (Ceftriaxone Sodium 1 Gm Vial) 1 gm IVPUSH Q24H [facility] Enoxaparin Sodium (Enoxaparin Sodium 40 Mg/0.4 Ml Syringe) 40 mg SUBCUT Q24H [facility] Last Admin: 09/08/24 08:40 Dose: 40 mg Documented By: SANDRA Guaifenesin (Guaifenesin La 600 Mg Tab.Er.12h) 1,200 mg PO BID PRN PRN Reason: Cough Last Admin: 09/08/24 04:01 Dose: 1,200 mg Documented By: LB Guaifenesin/Codeine Phosphate (Guaifen/Codeine Sf 200/20/10ml 10 Ml Liquid) 5 ml PO Q4H PRN PRN Reason: Cough Last Admin: 09/08/24 10:42 Dose: 5 ml Documented By: MANI Azithromycin 500 mg/ Sodium (Chloride) 250 mls @ 125 mls/hr IV Q24H [facility] Sodium Chloride (0.9 % Sodium Chloride Flush 3 Ml Syringe) 3 ml IVFLUSH QSHIFT [facility] Last Admin: 09/08/24 08:41 Dose: 3 ml Documented By: SANDRA Labs 09/08/24 05:13 09/08/24 05:13 Labs: Laboratory Results - last 24 hr 09/07/24 09/07/24 09/07/24 19:18 21:36 21:38 MCV 86.4 MCH 31.1 MCHC 36.0 RDW 12.8 Plt Count 259 MPV 9.8 Immature Gran % (Auto) 1.7 H Neut % (Auto) 82.9 H Lymph % (Auto) 7.1 L [place] % (Auto) 7.8 Eos % (Auto) 0.2 Baso % (Auto) 0.3 Lymph # (Auto) 1.3 [place] # (Auto) 1.4 H Eos # (Auto) 0.0 Baso # (Auto) 0.1 Abs Immat Gran (auto) 0.31 H Absolute Neuts (auto) 15.1 H Absolute Nucleated RBC 0.000 Nucleated RBC % (auto) 0.0 Smear Tech's Comments Anion Gap 15 Estim Creat Clear Calc 53.4 Estimated GFR > 60 Random Glucose 122 H Lactic Acid Lactic Acid F/U @ 2Hr Calcium 9.4 Magnesium 1.9 Total Bilirubin 0.8 AST 65 H ALT 35 Alkaline Phosphatase 78 Troponin I High Sens 6.1 Total Protein 7.5 Albumin 4.0 Procalcitonin Urine Color Urine Appearance Urine pH Ur Specific [place] Urine Protein Urine Glucose (UA) Urine Ketones Urine Blood Urine Nitrite Ur Leukocyte Esterase Urine RBC Urine WBC Ur Squamous Epith Cells Urine Bacteria Hyaline Casts Respiratory Panel [place] Adenovirus (Rapid PCR) B.pert (TEM-PCR) B.parapertussis DNA PCR C. pneumoniae DNA (PCR) Coronavirus OC43 (PCR) Coronavirus HKU1 (PCR) Coronavirus 229E (PCR) Coronavirus NL63 (PCR) Human Metapneumovir PCR Influenza A (RT-PCR) Influenza A (H1) PCR Influ A () PCR Influenza A (H3) PCR Influenza Type A (PCR) NEGATIVE Influenza B (RT-PCR) Influenza Type B (PCR) NEGATIVE M. pneumoniae (PCR) Parainfluenza 1 (PCR) Parainfluenza 2 (PCR) Parainfluenza 3 (PCR) Parainfluenza 4 (PCR) RSV (PCR) RSV RNA Qual (PCR) NEGATIVE Entero/Rhino (PCR) SARS-CoV-2 RNA (RT-PCR) NEGATIVE 09/07/24 09/08/24 09/08/24 22:47 01:48 02:17 MCV MCH MCHC RDW Plt Count MPV Immature Gran % (Auto) Neut % (Auto) Lymph % (Auto) [place] % (Auto) Eos % (Auto) Baso % (Auto) Lymph # (Auto) [place] # (Auto) Eos # (Auto) Baso # (Auto) Abs Immat Gran (auto) Absolute Neuts (auto) Absolute Nucleated RBC Nucleated RBC % (auto) Smear Tech's Comments Anion Gap Estim Creat Clear Calc Estimated GFR Random Glucose Lactic Acid 2.1 H* Lactic Acid F/U @ 2Hr 1.5 Calcium Magnesium Total Bilirubin AST ALT Alkaline Phosphatase Troponin I High Sens Total Protein Albumin Procalcitonin Urine Color Yellow Urine Appearance Clear Urine pH 5.5 Ur Specific [place] 1.020 Urine Protein 100 (2+) H Urine Glucose (UA) Negative Urine Ketones 15 Urine Blood Moderate (2+) H Urine Nitrite Negative Ur Leukocyte Esterase Negative Urine RBC 0-2 Urine WBC 0-5 Ur Squamous Epith Cells 3-5 Urine Bacteria None Seen Hyaline Casts 0-2 Respiratory Panel [place] See Note Adenovirus (Rapid PCR) Not Detected B.pert (TEM-PCR) Not Detected B.parapertussis DNA PCR Not Detected C. pneumoniae DNA (PCR) Not Detected Coronavirus OC43 (PCR) Not Detected Coronavirus HKU1 (PCR) Not Detected Coronavirus 229E (PCR) Not Detected Coronavirus NL63 (PCR) Not Detected Human Metapneumovir PCR Not Detected Influenza A (RT-PCR) Not Detected Influenza A (H1) PCR Not Detected Influ A () PCR Not Detected Influenza A (H3) PCR Not Detected Influenza Type A (PCR) Influenza B (RT-PCR) Not Detected Influenza Type B (PCR) M. pneumoniae (PCR) Not Detected Parainfluenza 1 (PCR) Not Detected Parainfluenza 2 (PCR) Not Detected Parainfluenza 3 (PCR) Not Detected Parainfluenza 4 (PCR) Not Detected RSV (PCR) Not Detected RSV RNA Qual (PCR) Entero/Rhino (PCR) Not Detected SARS-CoV-2 RNA (RT-PCR) Not Detected 09/08/24 05:13 MCV 87.7 MCH 31.0 MCHC 35.4 RDW 13.1 Plt Count 248 MPV 9.9 Immature Gran % (Auto) 2.0 H Neut % (Auto) 78.5 H Lymph % (Auto) 10.6 L [place] % (Auto) 8.1 Eos % (Auto) 0.4 Baso % (Auto) 0.4 Lymph # (Auto) 2.1 [place] # (Auto) 1.6 H Eos # (Auto) 0.1 Baso # (Auto) 0.1 Abs Immat Gran (auto) 0.39 H Absolute Neuts (auto) 15.2 H Absolute Nucleated RBC 0.000 Nucleated RBC % (auto) 0.0 Smear Tech's Comments VERIFIED Anion Gap 14 Estim Creat Clear Calc 57.4 Estimated GFR > 60 Random Glucose 96 Lactic Acid Lactic Acid F/U @ 2Hr Calcium 9.1 Magnesium 1.9 Total Bilirubin AST ALT Alkaline Phosphatase Troponin I High Sens Total Protein Albumin Procalcitonin 4.48 Urine Color Urine Appearance Urine pH Ur Specific [place] Urine Protein Urine Glucose (UA) Urine Ketones Urine Blood Urine Nitrite Ur Leukocyte Esterase Urine RBC Urine WBC Ur Squamous Epith Cells Urine Bacteria Hyaline Casts Respiratory Panel [place] Adenovirus (Rapid PCR) B.pert (TEM-PCR) B.parapertussis DNA PCR C. pneumoniae DNA (PCR) Coronavirus OC43 (PCR) Coronavirus HKU1 (PCR) Coronavirus 229E (PCR) Coronavirus NL63 (PCR) Human Metapneumovir PCR Influenza A (RT-PCR) Influenza A (H1) PCR Influ A (H1/09) PCR Influenza A (H3) PCR Influenza Type A (PCR) Influenza B (RT-PCR) Influenza Type B (PCR) M. pneumoniae (PCR) Parainfluenza 1 (PCR) Parainfluenza 2 (PCR) Parainfluenza 3 (PCR) Parainfluenza 4 (PCR) RSV (PCR) RSV RNA Qual (PCR) Entero/Rhino (PCR) SARS-CoV-2 RNA (RT-PCR) Assessment and Plan (1) Pneumonia: Status: Acute Plan d1 for 73yo M with HTN and no chronic lung disease admitted with community-acquired pneumonia CAP - continue doxycycline + ceftriaxone 09/08-, trend PCT which was 4.48 today, follow BCx, MRSA + urinary antigens for Legionella and pneumococcus pending acute lactic acidosis - resolved HTN - amlodipine VTE ppx - enoxaparin dispo - TBD In my clinical judgment, the patient requires continued inpatient hospitalization for the following reasons: IV ABX Total time managing care of this patient today: 35 minutes. Quality Stroke Does the patient have a stroke diagnosis?: No VTE Prior VTE?: No VTE Risk Level:: Medical - moderate - high VTE Device Contraindication: Treatment Not Indicated VTE Drug Contraindication: N/A - Med Ordered
[2024-09-08 11:30] LABS: MRSA Nasal PCR NEGATIVE (Negative); SA Nasal PCR NEGATIVE (Negative)
--- NOTE | 2024-09-09 00:23 | PC.NURSE ---
pt setting off bed alarm and camera, pt very unsteady, impulsive and forgetful not using call bells or walker. pt educated numerous times on safety with no result. pt moved from room 358 to 367 closer to nursing station for safety.
[2024-09-09 03:32] VITALS: BP 152/85; PULSE 88; RESP 20; TEMP 36.6; O2SAT 92
[2024-09-09 06:04] LABS: Hematocrit 34.9 % (42.0-52.0); Hemoglobin 11.9 g/dl (14.0-18.0); Mean Corpuscular HGB Conc 34.1 g/dl (31.0-36.0); Mean Corpuscular Hemoglobin 30.7 pg (27.0-33.0); Mean Corpuscular Volume 89.9 fL (80.0-98.0); NRBC Abs Auto 0.000 X10*3/uL (0.0-0.012); NRBC Pct Auto 0.0 /100WBC (0.0-0.2); Platelet Count 258 X10*3/uL (160-400); Red Blood Count 3.88 X10*6/uL (4.60-5.80); White Blood Count 15.1 X10*3/uL (4.8-10.8)
[2024-09-09 06:18] LABS: Anion Gap 13 (12-20); Blood Urea Nitrogen 16 mg/dL (9-16); Calcium 8.9 mg/dL (8.4-10.2); Carbon Dioxide 20 mmol/L (22-29); Chloride 112 mmol/L (96-108); Creatinine Clr Calc Pharmacy 67.6; Estimated Glomerular Filt Rate > 60; Potassium 5.5 mmol/L (3.3-5.1); Sodium 139 mmol/L (135-145)
[2024-09-09 06:38] LABS: HIV Num 1 0.06 S/CO (0.00-0.99)
[2024-09-09 07:18] VITALS: BP 131/82; PULSE 81; RESP 18; TEMP 36.9; O2SAT 92
[2024-09-09] MEDS: 0.9 % Sodium Chloride Flush 3 ML SYRINGE IVFLUSH ×3 (08:37→20:05)
[2024-09-09 08:52] LABS: Blood Urea Nitrogen 16 mg/dL (9-16); Calcium 9.0 mg/dL (8.4-10.2); Creatinine Clr Calc Pharmacy 67.6; Estimated Glomerular Filt Rate > 60
[2024-09-09 08:59] LABS: Anion Gap 12 (12-20); Carbon Dioxide 22 mmol/L (22-29); Chloride 111 mmol/L (96-108); Potassium 3.1 mmol/L (3.3-5.1); Sodium 142 mmol/L (135-145)
--- NOTE | 2024-09-09 09:45 | P.PNIM_ITS ---
Subjective Subjective Date of Service: 09/09/24 Interval History: feels well, cough improving though still a little short of breath Review of Systems Review of Systems: Yes all other systems are reviewed and are negative Physical Exam 2 Vital Signs: Vital Signs: Last Vital Signs Temp 98.4 F 09/09/24 07:18 Pulse 81 09/09/24 07:18 Resp 18 09/09/24 07:18 BP 131/82 09/09/24 07:18 Pulse Ox 92 09/09/24 07:18 O2 Del Method Room Air 09/09/24 07:18 BMI result Body Mass Index 28.3 Gen: in no acute distress HEENT: sclera anicteric, moist mucus membranes Neck: supple Lungs: a few inspiratory crackles R mid-lung field Heart: regular rate and rhythm, no murmurs Abd: soft, non-tender, non-distended Ext: no edema Skin: warm/well-perfused Neuro: alert and oriented x3, no focal findings Psych: appropriate affect Objective Data Active Medications Acetaminophen (Acetaminophen 325 Mg Tablet) 975 mg PO Q6H PRN PRN Reason: Pain, Mild 1-3,fever,headache Last Admin: 09/09/24 08:34 Dose: 975 mg Documented By: BRIAN Albuterol Sulfate (Albuterol Sulfate (0.083%) 2.5 Mg/3 Ml Vial.Neb) 2.5 mg INHALE Q3H PRN PRN Reason: Wheezing Amlodipine Besylate (Amlodipine Besylate 5 Mg Tablet) 5 mg PO DAILY [facility]; Protocol Last Admin: 09/09/24 08:34 Dose: 5 mg Documented By: BRIAN Benzonatate (Benzonatate 100 Mg Capsule) 200 mg PO TID PRN PRN Reason: Cough Last Admin: 09/08/24 12:07 Dose: 200 mg Documented By: MANI Ceftriaxone Sodium (Ceftriaxone Sodium 1 Gm Vial) 1 gm IVPUSH Q24H [facility] Last Admin: 09/08/24 19:56 Dose: 1 gm Documented By: ANDREA Doxycycline Monohydrate (Doxycycline Monohydrate 100 Mg Capsule) 100 mg PO BID [facility] Last Admin: 09/09/24 08:34 Dose: 100 mg Documented By: BRIAN Enoxaparin Sodium (Enoxaparin Sodium 40 Mg/0.4 Ml Syringe) 40 mg SUBCUT Q24H [facility] Last Admin: 09/09/24 08:38 Dose: 40 mg Documented By: BRIAN Guaifenesin (Guaifenesin La 600 Mg Tab.Er.12h) 1,200 mg PO BID PRN PRN Reason: Cough Last Admin: 09/08/24 04:01 Dose: 1,200 mg Documented By: LB Guaifenesin/Codeine Phosphate (Guaifen/Codeine Sf 200/20/10ml 10 Ml Liquid) 5 ml PO Q4H PRN PRN Reason: Cough Last Admin: 09/08/24 23:31 Dose: 5 ml Documented By: ANDREA Sodium Chloride (0.9 % Sodium Chloride Flush 3 Ml Syringe) 3 ml IVFLUSH QSHIFT [facility] Last Admin: 09/09/24 08:37 Dose: 3 ml Documented By: BRIAN Labs 09/09/24 05:42 09/09/24 08:18 Labs: Laboratory Results - last 24 hr 09/08/24 09/08/24 09/09/24 02:17 10:13 05:42 MCV 89.9 MCH 30.7 MCHC 34.1 RDW 13.2 Plt Count 258 MPV 10.2 Absolute Nucleated RBC 0.000 Nucleated RBC % (auto) 0.0 Anion Gap 13 Estim Creat Clear Calc 67.6 Estimated GFR > 60 Random Glucose 82 Calcium 8.9 Nasal Screen MRSA (PCR) NEGATIVE Nasal S. aureus Screen NEGATIVE Nasal MRSA/S.aureus Interp SEE NOTE Respiratory Panel [place] See Note Adenovirus (Rapid PCR) Not Detected B.pert (TEM-PCR) Not Detected B.parapertussis DNA PCR Not Detected C. pneumoniae DNA (PCR) Not Detected Coronavirus OC43 (PCR) Not Detected Coronavirus HKU1 (PCR) Not Detected Coronavirus 229E (PCR) Not Detected Coronavirus NL63 (PCR) Not Detected HIV 1&2 Ab/P24 Ag 4thGn Nonreactive Human Metapneumovir PCR Not Detected Influenza A (RT-PCR) Not Detected Influenza A (H1) PCR Not Detected Influ A (H1/09) PCR Not Detected Influenza A (H3) PCR Not Detected Influenza B (RT-PCR) Not Detected M. pneumoniae (PCR) Not Detected Parainfluenza 1 (PCR) Not Detected Parainfluenza 2 (PCR) Not Detected Parainfluenza 3 (PCR) Not Detected Parainfluenza 4 (PCR) Not Detected RSV (PCR) Not Detected Entero/Rhino (PCR) Not Detected SARS-CoV-2 RNA (RT-PCR) Not Detected 09/09/24 08:18 MCV MCH MCHC RDW Plt Count MPV Absolute Nucleated RBC Nucleated RBC % (auto) Anion Gap 12 Estim Creat Clear Calc 67.6 Estimated GFR > 60 Random Glucose 81 Calcium 9.0 Nasal Screen MRSA (PCR) Nasal S. aureus Screen Nasal MRSA/S.aureus Interp Respiratory Panel [place] Adenovirus (Rapid PCR) B.pert (TEM-PCR) B.parapertussis DNA PCR C. pneumoniae DNA (PCR) Coronavirus OC43 (PCR) Coronavirus HKU1 (PCR) Coronavirus 229E (PCR) Coronavirus NL63 (PCR) HIV 1&2 Ab/P24 Ag 4thGn Human Metapneumovir PCR Influenza A (RT-PCR) Influenza A (H1) PCR Influ A (H1/09) PCR Influenza A (H3) PCR Influenza B (RT-PCR) M. pneumoniae (PCR) Parainfluenza 1 (PCR) Parainfluenza 2 (PCR) Parainfluenza 3 (PCR) Parainfluenza 4 (PCR) RSV (PCR) Entero/Rhino (PCR) SARS-CoV-2 RNA (RT-PCR) Microbiology Microbiology Results: Microbiology 09/07/24 22:47 Blood Culture - Preliminary Blood - Venous No growth after 24 hours. 09/07/24 22:39 Blood Culture - Preliminary Blood - Venous No growth after 24 hours. Assessment and Plan (1) Pneumonia: Status: Acute Plan d2 for 73yo M with HTN and no chronic lung disease admitted with community- acquired pneumonia CAP - continue doxycycline + ceftriaxone 09/08-, trend PCT which was 4.48 yesterday, follow BCx which are negative to date, MRSA negative, HIV negative, urinary antigens for Legionella and pneumococcus pending acute lactic acidosis likely from dehydration- resolved HTN- amlodipine VTE ppx- enoxaparin dispo - PT eval pending In my clinical judgment, the patient requires continued inpatient hospitalization for the following reasons: IV ABX Total time managing care of this patient today: 35 minutes. Quality Stroke Does the patient have a stroke diagnosis?: No VTE Prior VTE?: No VTE Risk Level:: Medical - moderate - high VTE Device Contraindication: Treatment Not Indicated VTE Drug Contraindication: N/A - Med Ordered
--- NOTE | 2024-09-09 11:40 | MHC.CM.PN ---
CM MET WITH PT WITH THE ASSISTANCE OF A [employer] SECURITY ADMINISTRATOR PT REPORTS HE LIVES ALONE AND IS INDEPENDENT WITH CARE HE HAS NO SERVICES HE HAS A WALKER, BUT PRIMARILY USES HIS CANE HE WILL COMPLETE A HCP NAMING HIS FRIEND, SABA LARSEN, BUT DOES NOT HAVE HER NUMBER WITH HIM HE UNDERSTANDS HE SHOULD ADD THE NUMBER SOON HE SEES HER, SHE IS SUPPOSED TO VISIT PCP: RAFFY OROZCO IMM DELIVERED DCP: PT IS AWARE STR WAS RECOMMENDED, HOWEVER STATES HE IS NOT WILLING TO GO HE IS AGREEABLE TO A VNA REFERRAL TO [facility] HE STATES HE WILL WALK HOME, HOWEVER USING THE SHUTTLE WAS ENCOURAGED.
[2024-09-09 15:23] VITALS: BP 152/78; PULSE 86; RESP 16; TEMP 37.1
[2024-09-09] MEDS: guaiFEN/Codeine SF 200/20/10ML 10 ML LIQUID 5 ML PO (20:01)
[2024-09-09 23:06] VITALS: BP 135/82; PULSE 88; RESP 24; TEMP 37.7; O2SAT 92
[2024-09-10 05:41] LABS: MANUAL DIFF FLAG NO
[2024-09-10 05:45] LABS: Hematocrit 35.3 % (42.0-52.0); Hemoglobin 12.3 g/dl (14.0-18.0); Imm Gran Abs Auto 0.32 X10*3/uL (0.00-0.03); Imm Gran Pct Auto 2.0 % (0.0-0.4); Lymphocytes Absolute Auto 1.7 X10*3/uL (1.2-4.9); Mean Corpuscular HGB Conc 34.8 g/dl (31.0-36.0); Mean Corpuscular Hemoglobin 30.9 pg (27.0-33.0); Mean Corpuscular Volume 88.7 fL (80.0-98.0); NRBC Abs Auto 0.000 X10*3/uL (0.0-0.012); NRBC Pct Auto 0.0 /100WBC (0.0-0.2); Platelet Count 316 X10*3/uL (160-400); Red Blood Count 3.98 X10*6/uL (4.60-5.80); White Blood Count 15.7 X10*3/uL (4.8-10.8)
[2024-09-10 06:23] LABS: Procalcitonin 1.80 ng/mL
[2024-09-10 07:07] VITALS: BP 146/78; PULSE 91; RESP 15; TEMP 36.7; O2SAT 92
[2024-09-10] MEDS: guaiFEN/Codeine SF 200/20/10ML 10 ML LIQUID 5 ML PO (08:36)
[2024-09-10] MEDS: 0.9 % Sodium Chloride Flush 3 ML SYRINGE IVFLUSH ×3 (08:38→20:49)
[2024-09-10 11:10] LABS: Anion Gap 11 (12-20); Blood Urea Nitrogen 15 mg/dL (9-16); Calcium 9.2 mg/dL (8.4-10.2); Carbon Dioxide 25 mmol/L (22-29); Chloride 107 mmol/L (96-108); Creatinine Clr Calc Pharmacy 61.5; Estimated Glomerular Filt Rate > 60; Potassium 3.1 mmol/L (3.3-5.1); Sodium 140 mmol/L (135-145)
--- NOTE | 2024-09-10 11:25 | P.PNIM_ITS ---
Subjective Subjective Date of Service: 09/10/24 Interval History: Feels better than presentation; complaining of right foot pain this a.m.. X- rays essentially unremarkable Review of Systems Denies chest pain Denies shortness of breath Denies nausea vomiting diarrhea Denies fever chills Physical Exam 2 Vital Signs: Vital Signs: Last Vital Signs Temp 98.1 F 09/10/24 07:07 Pulse 91 09/10/24 07:07 Resp 15 09/10/24 07:07 BP 146/78 H 09/10/24 07:07 Pulse Ox 92 09/10/24 07:07 O2 Del Method Room Air 09/10/24 07:07 BMI result Body Mass Index 28.3 Const: Other: Awake alert no acute distress Resp: Other: Scant crackles right base otherwise clear throughout Cardio: Other: No S4; positive S1-S2; no S3 murmurs rubs or gallops GI: Other: Soft nontender nondistended normoactive bowel sounds Extrem: Other: No edema bilaterally. Tender lateral aspect right foot Objective Data Active Medications Acetaminophen (Acetaminophen 325 Mg Tablet) 975 mg PO Q6H PRN PRN Reason: Pain, Mild 1-3,fever,headache Last Admin: 09/10/24 08:31 Dose: 975 mg Documented By: BRIAN Albuterol Sulfate (Albuterol Sulfate (0.083%) 2.5 Mg/3 Ml Vial.Neb) 2.5 mg INHALE Q3H PRN PRN Reason: Wheezing Amlodipine Besylate (Amlodipine Besylate 5 Mg Tablet) 5 mg PO DAILY [facility]; Protocol Last Admin: 09/10/24 08:31 Dose: 5 mg Documented By: BRIAN Benzonatate (Benzonatate 100 Mg Capsule) 200 mg PO TID PRN PRN Reason: Cough Last Admin: 09/10/24 08:35 Dose: 200 mg Documented By: BRIAN Ceftriaxone Sodium (Ceftriaxone Sodium 1 Gm Vial) 1 gm IVPUSH Q24H [facility] Last Admin: 09/09/24 20:01 Dose: 1 gm Documented By: ASHLEY Doxycycline Monohydrate (Doxycycline Monohydrate 100 Mg Capsule) 100 mg PO BID [facility] Last Admin: 09/10/24 08:31 Dose: 100 mg Documented By: BRIAN Enoxaparin Sodium (Enoxaparin Sodium 40 Mg/0.4 Ml Syringe) 40 mg SUBCUT Q24H [facility] Last Admin: 09/10/24 08:38 Dose: 40 mg Documented By: BRIAN Guaifenesin (Guaifenesin [place] 600 Mg Tab.Er.12h) 1,200 mg PO BID PRN PRN Reason: Cough Last Admin: 09/08/24 04:01 Dose: 1,200 mg Documented By: LB Guaifenesin/Codeine Phosphate (Guaifen/Codeine Sf 200/20/10ml 10 Ml Liquid) 5 ml PO Q4H PRN PRN Reason: Cough Last Admin: 09/10/24 08:36 Dose: 5 ml Documented By: BRIAN Sodium Chloride (0.9 % Sodium Chloride Flush 3 Ml Syringe) 3 ml IVFLUSH QSHIFT [facility] Last Admin: 09/10/24 08:38 Dose: 3 ml Documented By: BRIAN Labs 09/10/24 05:08 09/10/24 10:51 Labs: Laboratory Results - last 24 hr 09/10/24 09/10/24 05:08 10:51 MCV 88.7 MCH 30.9 MCHC 34.8 RDW 13.2 Plt Count 316 MPV 9.9 Immature Gran % (Auto) 2.0 H Neut % (Auto) 78.3 H Lymph % (Auto) 10.5 L [place] % (Auto) 7.5 Eos % (Auto) 1.2 Baso % (Auto) 0.5 Lymph # (Auto) 1.7 [place] # (Auto) 1.2 Eos # (Auto) 0.2 Baso # (Auto) 0.1 Abs Immat Gran (auto) 0.32 H Absolute Neuts (auto) 12.3 H Absolute Nucleated RBC 0.000 Nucleated RBC % (auto) 0.0 Anion Gap 11 L Estim Creat Clear Calc 61.5 Estimated GFR > 60 Random Glucose 136 H Calcium 9.2 Procalcitonin 1.80 Microbiology Microbiology Results: Microbiology 09/07/24 22:47 Blood Culture - Preliminary Blood - Venous No growth after 48 hours. 09/07/24 22:39 Blood Culture - Preliminary Blood - Venous No growth after 48 hours. Assessment and Plan (1) Pneumonia: Status: Acute (2) Hypertension: Status: Acute Plan 73yo M with HTN and no chronic lung disease admitted with community-acquired pneumonia 1.CAP - doxycycline/ceftriaxone (3), MRSA negative, HIV negative, urinary antigens for Legionella and pneumococcus pending 2.HTN -acceptable control on current therapies -adjust as indicated VTE ppx- enoxaparin dispo - PT eval pending In my clinical judgment, the patient requires continued inpatient hospitalization for the following reasons: IV ABX Quality Stroke Does the patient have a stroke diagnosis?: No VTE Prior VTE?: No VTE Risk Level:: Medical - moderate - high VTE Device Contraindication: Treatment Not Indicated VTE Drug Contraindication: N/A - Med Ordered
[2024-09-10 11:53] VITALS: BP 146/78; PULSE 91; O2SAT 92
[2024-09-10] MEDS: Potassium Chloride Packet 20 MEQ PACKET 40 MEQ PO (12:05)
--- NOTE | 2024-09-10 12:57 | MHC.CM.PN ---
PT is recommending STR. This CM met with pt with a heel blacker to discuss discharge plan. Pt states he would like to return home at discharge, he doesn't want to go to STR. DCP: Home with new VNA services.
[2024-09-10 16:00] VITALS: BP 140/78; PULSE 90; RESP 18; TEMP 36.6; O2SAT 93
[2024-09-10 23:20] VITALS: BP 137/80; PULSE 83; RESP 16; TEMP 36.2; O2SAT 94
[2024-09-11 06:12] LABS: MANUAL DIFF FLAG NO
[2024-09-11 06:18] LABS: Hematocrit 36.8 % (42.0-52.0); Hemoglobin 12.5 g/dl (14.0-18.0); Imm Gran Abs Auto 0.55 X10*3/uL (0.00-0.03); Imm Gran Pct Auto 3.8 % (0.0-0.4); Lymphocytes Absolute Auto 1.7 X10*3/uL (1.2-4.9); Mean Corpuscular HGB Conc 34.0 g/dl (31.0-36.0); Mean Corpuscular Hemoglobin 30.5 pg (27.0-33.0); Mean Corpuscular Volume 89.8 fL (80.0-98.0); NRBC Abs Auto 0.000 X10*3/uL (0.0-0.012); NRBC Pct Auto 0.0 /100WBC (0.0-0.2); Platelet Count 337 X10*3/uL (160-400); Red Blood Count 4.10 X10*6/uL (4.60-5.80); White Blood Count 14.3 X10*3/uL (4.8-10.8)
[2024-09-11 06:35] LABS: Alanine Aminotransferase 43 U/L (0-40); Albumin Level 3.3 g/dL (3.5-5.0); Alkaline Phosphatase 80 U/L (39-117); Anion Gap 13 (12-20); Aspartate Amino Transferase 58 U/L (5-37); Blood Urea Nitrogen 14 mg/dL (9-16); Calcium 9.3 mg/dL (8.4-10.2); Carbon Dioxide 22 mmol/L (22-29); Chloride 108 mmol/L (96-108); Creatinine Clr Calc Pharmacy 69.1; Estimated Glomerular Filt Rate > 60; Potassium 3.4 mmol/L (3.3-5.1); Sodium 140 mmol/L (135-145); Total Protein 6.8 g/dL (6.5-8.0)
[2024-09-11 07:31] VITALS: BP 143/75; PULSE 87; RESP 16; TEMP 36.6; O2SAT 93
[2024-09-11] MEDS: 0.9 % Sodium Chloride Flush 3 ML SYRINGE IVFLUSH (08:50)
--- NOTE | 2024-09-11 12:30 | MHC.CM.PN ---
Addendum entered by Bria Hernandez 09/11/24 13:00: Per pts request, this CM placed a call to pts juhi Navarrete ([phone]) and updated her on his discharge. Original Note: Pt is medically cleared for discharge home with new [facility] services, he will transport home via [facility] shuttle ride.
--- NOTE | 2024-09-11 12:38 | PM.DS ---
DS: Providers Provider Date of Service: 09/11/24 Date of admission: 09/08/24 01:19 Date of discharge: 09/11/24 Primary care physician: Sam Martin MD DS: Diagnosis Discharge Diagnosis (1) Pneumonia: Status: Acute (2) Hypertension: Status: Acute DS: Summary Hospital Course Hospital Course: 73 years old man with past medical history significant for hypertension presents to the emergency department complaining of 5 day history of persistent dry cough associated with mild headache, fever and chills. He denies shortness or breath or chest pain. She also denied any acute gastrointestinal or genitourinary symptoms. Denied contact with ill people or recent travel history. He is a former tobacco smoker -quit in 2006. 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 Denied marijuana smoking or illicit drug use. He is not currently taking any medication. In the ED, the patient was found to have fever of 101.3, tachycardia and tachypnea. Blood pressure is elevated. Last blood pressure is 135/73. Blood workup showed leukocytosis of 18.3. Hemoglobin 13.7 and platelets 259. There are no electrolyte imbalances. CO2 is 21 and anion gap is normal. BUN is 19 creatinine 1.14. Lactic acid is minimally elevated, 2.1. LFTs are normal except AST, 65. Troponin is 6.1. Urinalysis showed proteinuria 2+, blood 2+ with normal RBC 0-2. Viral testing is negative for influenza, RSV and COVID-19. Chest CTA showed no pulmonary embolism. It did showed findings likely representing pneumonia of the right basilar region and RUL. It is showed a large hiatal hernia extending to the left hemithorax with adjacent left lower lobe compressive atelectasis; colonic diverticulosis. ECG shows sinus tachycardia, 113 bpm, left axis deviation and no acute ischemic changes. Hospital course Admitted to general medical floor and started on ceftriaxone and doxycycline. Remained afebrile throughout her hospitalization. Blood cultures negative times 48 hours. At this point he is medically acceptable be discharged home to complete a course of oral antibiotics and follow up with PCP Time Attestation Discharge Coordination Time (in mins): 35 Quality: Safe Use of Opioids Does Pt have an Active Cancer Diagnosis on the Problem List?: No Quality: Stroke Does the patient have a stroke diagnosis?: No Physical Exam Vital Signs: Vital Signs: Last Vital Signs Temp 97.8 F 09/11/24 07:31 Pulse 87 09/11/24 07:31 Resp 16 09/11/24 07:31 BP 143/75 H 09/11/24 07:31 Pulse Ox 93 09/11/24 07:31 O2 Del Method Room Air 09/11/24 07:31 BMI result Body Mass Index 28.3 Const: Other: Awake alert no acute distress Resp: Other: Scant crackles right base otherwise clear throughout Cardio: Other: No S4; positive S1-S2; no S3 murmurs rubs or gallops GI: Other: Soft nontender nondistended normoactive bowel sounds Extrem: Other: No edema bilaterally. Tender lateral aspect right foot DS: Data Data Completed and Pending Labs on day of discharge: Laboratory Results - last 24 hr 09/11/24 05:31 WBC 14.3 H RBC 4.10 L Hgb 12.5 L Hct 36.8 L MCV 89.8 MCH 30.5 MCHC 34.0 RDW 13.2 Plt Count 337 MPV 9.8 Immature Gran % (Auto) 3.8 H Neut % (Auto) 75.7 H Lymph % (Auto) 11.7 L [place] % (Auto) 7.3 Eos % (Auto) 1.0 Baso % (Auto) 0.5 Lymph # (Auto) 1.7 [place] # (Auto) 1.1 Eos # (Auto) 0.2 Baso # (Auto) 0.1 Abs Immat Gran (auto) 0.55 H Absolute Neuts (auto) 10.8 H Absolute Nucleated RBC 0.000 Nucleated RBC % (auto) 0.0 Sodium 140 Potassium 3.4 Chloride 108 Carbon Dioxide 22 Anion Gap 13 BUN 14 Creatinine 0.88 Estim Creat Clear Calc 69.1 Estimated GFR > 60 Fasting Glucose 90 Calcium 9.3 Total Bilirubin 0.5 AST 58 H ALT 43 H Alkaline Phosphatase 80 Total Protein 6.8 Albumin 3.3 L Preliminary micro results at discharge 09/07/24 22:47 Blood Culture - Preliminary Blood - Venous No growth after 48 hours. 09/07/24 22:39 Blood Culture - Preliminary Blood - Venous No growth after 48 hours. Discharge Plan Discharge Anticipated Discharge Date/Time: 09/11/24 12:30 Patient Disposition: Home Health Service Discharge Diagnosis: Right lower lobe pneumonia Referrals: [facility] [Outside] - 1 Week WhittakerSam Spain MD [Primary Care Provider, Medical] - 1 Week Discharge Medications: New amlodipine 5 mg Tablet 5 mg PO DAILY Qty: 30 0RF Protocol: Hold for SBP< HOLD for SBP < : 90 doxycycline monohydrate 100 mg Capsule 100 mg PO BID Qty: 14 0RF Discharge Orders: Discharge Order (Routine); Ordered 09/11/24 Ordered By: Aries Raman Diet: Advance to usual diet Activity on Discharge: As tolerated Stand Alone Forms: Patient Portal Discharge page Print Language: Divehi Care Plan Goals: Complete course of doxycycline as ordered. Health Concerns: Amlodipine 5 mg daily has been added for blood pressure control. Continue this until seen by your PCP Plan of Treatment: Follow up with PCP next available Assessment: See discharge summary
--- NOTE | 2024-09-11 12:43 | P.F2F_ITS ---
Service Date Service Date: 09/11/24 Encounter Date of encounter: 09/11/24 Encounter: Acute hospitalization Reasons for Services Signs and symptoms assessed: Monitor respiratory status and response to therapies Reason for shelter: medication management and other (Monitor respiratory status) Homebound: Leaving the home is medically contraindicated at this time without the asist of a device and/or another person due th the listed conditions above and below. Reason homebound: unsteady gait / fall risk and weakness related to hospital stay Certification: Based on the above findings, I certify that this patient is confined to the home and needs intermittent shelter care, physical therapy and/or speech therapy, or continues to need occupational therapy. The patient is under my care, and I have initiated the establishment of the plan of care. The patient will be followed by a physician who will periodically review the plan of care. Time Spent With Patient Time: Total time managing care of this patient today ____ minutes.
[2024-09-12 01:18] LABS: Strep Pneumo Ag urine Not Detected (Not Detected)
--- NOTE | 2024-09-26 14:04 | P.CDIM_ITS ---
PROVIDER RESPONSE TEXT: To clarify, the appropriate diagnosis supported by the clinical indicators: Other (explain): sepsis that is not severe QUERY TEXT: PHYSICIAN'S DOCUMENTATION REQUEST Date of Query: 09/09/2024 01:11 PM EDT Patient Name: TERRANCE Masters Admit Date: 09/08/2024 Dear Saman Wilson MD, A review of the medical record indicates additional documentation may be needed. Please review below and update the documentation accordingly. Clinical Indicators: RLL pneumonia WBC 18.3 pulse 95 respiratory rate 26 temperature 101.3 IV Ceftriaxone Please clarify which, if any, of the following is the most likely etiology of the above symptoms and treatment rendered: Sepsis Localized infection only, without systemic illness Indicate the site/source, such as UTI, pneumonia, etc. Bacteremia (abnormal lab finding only, does not indicate systemic illness) Other (explain) Clinically unable to determine (explain) Thank you, Nadia Solis RN Use of terms such as suspected, likely, concern for, or probable (associated with a specific diagnosis that is being evaluated, monitored, or treated as if it exists) are acceptable and can be coded in the inpatient setting, when documented at the time of discharge. Please use your independent medical judgment in providing your response. THIS QUERY IS PART OF THE PERMANENT MEDICAL RECORD
== END 2024-09-11 14:13 | disposition home health service (06) | DRG 871 ==
LOC: HO.ED 09-08 01:14 → HO.EDOVER 09-08 01:22 → HO.S3 09-08 08:14
PROVIDERS: Family Medicine; Admitting Provider Internal Medicine; Emergency Provider Emergency Medicine Emergency Medical Services; PCP Internal Medicine; Visit Provider Hospitalist
DX: A41.9 Sepsis, unspecified organism (principal); J18.9 Pneumonia, unspecified organism; E87.21 Acute metabolic acidosis; I10 Essential (primary) hypertension; E86.0 Dehydration; D50.9 Iron deficiency anemia, unspecified; Z20.822 Contact with and (suspected) exposure to COVID-19; Z87.891 Personal history of nicotine dependence
CPT/HCPCS: 0241U; 36415; 71046; 71275; 73620; 74177; 80048; 80053; 81001; 83605; 83735; 84145; 84484; 85025; 85027; 87040; 87389; 87449; 87633; 87640; 87641; 87899; 93005; 97162; 97530; 99285; J0696; J1650; Q9967

== ENCOUNTER → 2024-09-07 21:41 | Outpatient (BNV) | payer OTHER, SELFPAY | PROVIDERS: Admitting Provider Internal Medicine; Emergency Provider Emergency Medicine Emergency Medical Services; PCP Internal Medicine; Visit Provider Internal Medicine | DX: R00.0 Tachycardia, unspecified (principal) | CPT/HCPCS: 93010 ==

== ENCOUNTER 2024-09-08 01:19 | Outpatient (BNV) | payer OTHER, SELFPAY | END 2024-09-10 07:29 | PROVIDERS: Admitting Provider Internal Medicine; Emergency Provider Emergency Medicine Emergency Medical Services; PCP Internal Medicine; Visit Provider Radiology Diagnostic Radiology | DX: M79.671 Pain in right foot (principal) | CPT/HCPCS: 73620 ==

== ENCOUNTER → 2024-09-08 01:19 | Outpatient (BNV) | payer OTHER, SELFPAY | PROVIDERS: Admitting Provider Internal Medicine; Emergency Provider Emergency Medicine Emergency Medical Services; PCP Internal Medicine; Visit Provider Internal Medicine | DX: J18.9 Pneumonia, unspecified organism (principal); I10 Essential (primary) hypertension; E87.21 Acute metabolic acidosis | CPT/HCPCS: 99223; 99499 ==

== ENCOUNTER 2024-12-31 10:58 | Outpatient (REF) | payer MEDICARE, SELFPAY | END 2024-12-31 10:59 | disposition home or self-care (01) | LOC: HO.HHCL 10:58 | PROVIDERS: PCP Internal Medicine; Visit Provider Internal Medicine | DX: Z00.00 Encounter for general adult medical examination without abnormal findings (principal); Z12.5 Encounter for screening for malignant neoplasm of prostate | CPT/HCPCS: 36415; 84153 ==